=== PATIENT | female | born 1940 | race Caucasian/White ===

== ENCOUNTER → 2016-06-03 | Outpatient (CLI) | payer MEDICARE ==
[~2016-06-03] MED LIST: B12; CEFD300C3 PO; CETI10CA PO; CITA20TA7 PO; ERGO2000 PO; NAPR220C11 PO; OMEP-10 PO; VITA150T PO; VITAMINES
--- OUTSIDE RECORDS SUMMARY | 2016-06-03 07:55 | XMS REPORT | Continuity of Care Document ---
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 Medications Current Home Medications Medication Dose Units Route Directions Days/Qty Instructions Start Date Omeprazole 20 Mg 20 Mg Oral Daily 04/13/12 Cetirizine Hcl 10 Mg 10 Mg Oral 04/13/12 Naproxen Sodium 220 Mg 220 Mg Oral As Needed 04/13/12 Cefdinir (Omnicef) 300 Mg 300 Mg Oral Twice A Day 14 12/06/15 Past Home Medications Medication Directions Ordered Status Ergocalciferol (Vitamin D2) 2,000 Unit Tablet, 2000 Unit Oral 04/13/12 Discontinued [B12] , 04/13/12 Discontinued [Vitamines] , 04/13/12 Discontinued Social History Social History Problem Response Recorded Date/Time Alcohol Use Denies Use 12/06/2015 5:54am Recreational Drug Use No 12/06/2015 5:54am Recent Foreign Travel No 03/10/2016 2:28pm Recent Infectious Disease Exposure No 03/10/2016 2:28pm Sexually Transmitted Disease No 03/10/2016 2:30pm HIV/AIDS No 03/10/2016 2:30pm Smoking Status Never a Smoker 03/10/2016 2:30pm Do you dip or chew tobacco? No 12/06/2015 5:54am Recent Hopitalizations No 03/10/2016 2:30pm Sexually Transmitted Disease No 03/10/2016 2:30pm Query Response Start Date Stop Date Smoking Status Never a Smoker Hospital Discharge Instructions No hospital discharge instructions. Plan of Care Discharge Date 03/10/16 2:37pm Prescriptions See Medication Section Functional Status No functional status results. Allergies, Adverse Reactions, Alerts No known allergies. Immunizations No immunization records. Vital Signs Acute Vital Signs Vital Response Date/Time Height (Feet) 5 feet 03/10/2016 2:29pm Height (Inches) 2.00 inches 03/10/2016 2:29pm Height (Calculated Centimeters) 157.630915 cm 03/10/2016 2:29pm Weight (Pounds) 165 pounds 03/10/2016 2:29pm Weight (Ounces) 0.0 oz 03/10/2016 2:29pm Weight (Calculated Grams) 79600.74 gm 03/10/2016 2:29pm Weight (Calculated Kilograms) 74.979825 kilograms 03/10/2016 2:29pm Calculated BMI 30.2 03/10/2016 2:29pm Results No known relevant diagnostic tests, laboratory data and/or discharge summary. Procedures No known history of procedures. Encounters Encounter Location Arrival/Admit Date Discharge/Depart Date Attending Provider Departed Clinic [facility] 03/10/16 5:59am 03/10/16 2: 37pm DOV HUERTAS MD
--- NOTE | 2016-06-03 09:21 | Diagnostic Imaging Report ---
PROCEDURE: MR imaging cervical spine without contrast. TECHNIQUE: Multiplanar, multisequence MR imaging of the cervical spine was performed without contrast. INDICATION: Neck pain. No known injury. FINDINGS: There is straightening of the cervical spine. The vertebral body heights are preserved. Disc desiccation is seen at all levels. Disc heights demonstrate uyizxthp-gr-evhrjrbz disc height loss in the mid to lower cervical spine levels, worst at C6/7 and C7/T1. The alignment of the posterior spinal line and the facet joints appears satisfactory. There is no widening of the predental space. The foramen magnum and upper cervical canal are patent. There is no suspicious marrow signal abnormality. Reactive mild degenerative changes are seen, however, around the degenerative discs. The spinal cord has a normal caliber, contour, and signal. C2/3: No significant disc herniation, no spinal canal or foraminal stenosis. C3/4: There is a small disc spur complex with no significant spinal canal stenosis. Uncovertebral and facet joint hypertrophy results in bilateral foraminal stenosis, moderate on the right and moderate to severe on the left. C4/5: There is a prominent spur disc complex and mild posterior ligamentous hypertrophy with no significant spinal canal stenosis. The foramina demonstrate severe stenosis bilaterally. C5/6: There is spur disc complex and posterior ligamentous hypertrophy without significant spinal canal stenosis. Bilateral severe foraminal stenosis, however, is present. C6/7: There is spur disc complex without significant spinal canal stenosis. The foramina demonstrate bilateral moderate narrowing. C7/T1: There is a spur disc complex without significant spinal canal stenosis. There is bilateral foraminal stenosis of moderate degree. There is no cord compression at any level. IMPRESSION: Prominent degenerative changes. There is multilevel significant foraminal stenosis. No significant spinal canal stenosis or cord compression, however, seen at any level. Dictated by: Dictated on workstation # [id number]
== END ==
LOC: RAD 07:52
PROVIDERS: ATTEND Orthopaedic Surgery
DX: M54.12 Radiculopathy, cervical region (principal)
CPT/HCPCS: 72141

== ENCOUNTER → 2017-02-07 | Outpatient (CLI) | payer MEDICARE ==
--- NOTE | 2017-02-07 13:46 | Diagnostic Imaging Report ---
Multiplanar multisequence MRI of the thoracic spine performed without intravenous contrast. INDICATION: Left-sided mid back pain after a fall. Spondylosis. FINDINGS: There is satisfactory alignment of the thoracic spine. The vertebral body heights are preserved with no compression fracture seen. There is disc desiccation at multiple levels. There is prominent disc height loss at T8/T9 and T9/T10 levels. The bone marrow signal is slightly heterogeneous with no suspicious focal lesion seen. There is prominent edema at the endplates around T12/L1 disc which appears to be reactive to disc degenerative changes. The spinal cord has normal caliber, contour and signal. There is no syrinx or spinal cord edema or mass identified. There are mild disc protrusions seen at T8/T9, T9/T10, and diffuse disc bulge at T12/L1 levels with no significant spinal canal stenosis or cord compression at any level. There is facet arthropathy also involving the upper and lower thoracic spine levels. This results in moderate foraminal stenosis at C7/T1 and at T1/T2 bilaterally. Also in the lower thoracic spine at T8/T9 level, there is mild foraminal stenosis on the left side only. At T9/T10, there is bilateral foraminal stenosis, moderate to severe on the left and moderate on the right side. No significant foraminal stenosis is seen at other levels. IMPRESSION: Degenerative changes in the thoracic spine are seen with multilevel disc herniations without spinal canal stenosis or cord compression at any level. In the upper and lower thoracic levels, there is facet arthropathy, however, with particularly prominent neural foraminal stenosis at T9/T10 level, worse on the left side. Dictated by: Dictated on workstation # [id number]
== END ==
LOC: RAD 09:14
PROVIDERS: ATTEND Orthopaedic Surgery
DX: M47.814 Spondylosis without myelopathy or radiculopathy, thoracic region (principal); M51.24 Other intervertebral disc displacement, thoracic region; M48.04 Spinal stenosis, thoracic region
CPT/HCPCS: 72146

== ENCOUNTER → 2017-12-06 | Outpatient (CLI) | payer MEDICARE ==
[~2017-12-06] MED LIST changes: -CITA20TA7 PO; +CITA20TA9 PO; +GADOBUTROL 7.5 MMOL/7.5 ML (GADAVIST) VIAL IV ONE
--- NOTE | 2017-12-06 12:22 | Diagnostic Imaging Report ---
PROCEDURE: MR imaging of the brain with and without contrast. TECHNIQUE: Multiplanar, multisequence MR imaging of the brain was performed with and without contrast. INDICATION: Left upper extremity tremors. COMPARISON: None. FINDINGS: Mild generalized cerebral and cerebellar parenchymal volume loss is age appropriate. No abnormal intracranial signal or enhancement. No restricted water diffusion or hemosiderin deposition. Normal morphology including the major midline structures, sella, posterior fossa, and cerebellopontine angle. Postoperative changes in the globes. No hydrocephalus or extra-axial fluid collections. Normal intracranial flow voids. The paranasal sinuses and mastoids are clear. Normal bone marrow signal. IMPRESSION: Age-appropriate MRI of the brain. No acute intracranial MRI findings. Dictated by: Dictated on workstation # [id number]
--- NOTE | 2017-12-06 12:29 | Diagnostic Imaging Report ---
PROCEDURE: MR imaging cervical spine with and without contrast. TECHNIQUE: Multiplanar and multisequence MRI of the cervical spine was performed with and without contrast. INDICATION: Left upper extremity tremor. Cervical stenosis. COMPARISON: MRI cervical spine without contrast 06/03/2016. FINDINGS: Minimal anterolisthesis of C3 on C4 stable. Alignment is otherwise unremarkable. Moderate diffuse degenerative endplate changes. Bone marrow signal is otherwise negative. No abnormal signal or enhancement in the cervical spinal cord. The visualized paravertebral soft tissues are unremarkable. The cervical carotid and vertebral artery flow voids are preserved. C2-C3: No substantial spinal canal or neural foraminal narrowing. C3-C4: Posterior disc osteophyte complex results in mild spinal canal narrowing. Uncovertebral and facet arthropathy result in moderate right neural foraminal narrowing. C4-C5: No substantial spinal canal narrowing. Uncovertebral and facet arthropathy result in moderate bilateral neural foraminal narrowing. C5-C6: Posterior disc osteophyte complex results in mild spinal canal narrowing. Uncovertebral and facet arthropathy result in moderate bilateral neural foraminal narrowing. C6-C7: Posterior disc osteophyte complex results in moderate spinal canal narrowing. This has mildly progressed since the prior exam. Uncovertebral and facet arthropathy result in moderate to advanced bilateral neural foraminal narrowing. C7-T1: Posterior disc osteophyte complex results in mild spinal canal narrowing. There is mild bilateral neural foraminal narrowing. IMPRESSION: 1. Overall stable spondylotic changes result in multilevel mild spinal canal narrowing. Allowing for differences in technique, the moderate spinal canal narrowing at C6-C7 is likely stable. No abnormal signal or enhancement in the cervical spinal cord. 2. Multilevel moderate to advanced neural foraminal narrowing detailed above level by level similar to the prior exam. 3. No acute osseous findings. Dictated by: Dictated on workstation # [id number]
== END ==
LOC: RAD 10:20
PROVIDERS: ATTEND Family Medicine
DX: M48.03 Spinal stenosis, cervicothoracic region (principal); M99.71 Connective tissue and disc stenosis of intervertebral foramina of cervical region; M46.82 Other specified inflammatory spondylopathies, cervical region; G20 Parkinson's disease
CPT/HCPCS: 70553; 72156

== ENCOUNTER → 2018-11-27 | Outpatient (CLI) | payer MEDICARE ==
[~2018-11-27] MED LIST changes: -GADOBUTROL 7.5 MMOL/7.5 ML (GADAVIST) VIAL IV ONE
[2018-11-27 17:00] LABS: BASOPHILS % (AUTO) 0 % (0-10); EOSINOPHILS # (AUTO) 0.2 10^3/uL (0.0-0.3); EOSINOPHILS % (AUTO) 4 % (0-10); HEMATOCRIT 41 % (35-52); HEMOGLOBIN 13.7 G/DL (11.5-16.0); LYMPHOCYTES # (AUTO) 1.6 X 10^3 (1.0-4.0); LYMPHOCYTES % (AUTO) 26 % (12-44); MEAN CORPUSCULAR HEMOGLOBIN 29 PG (25-34); MEAN CORPUSCULAR HGB CONC 33 G/DL (32-36); MEAN CORPUSCULAR VOLUME 86 FL (80-99); MEAN PLATELET VOLUME 9.8 FL (7.4-10.4); MONOCYTES # (AUTO) 0.6 X 10^3 (0.0-1.0); MONOCYTES % (AUTO) 10 % (0-12); NEUTROPHILS # (AUTO) 3.6 X 10^3 (1.8-7.8); NEUTROPHILS % (AUTO) 60 % (42-75); PLATELET COUNT 245 10^3/uL (130-400); RED CELL DISTRIBUTION WIDTH 13.5 % (10.0-14.5); WHITE BLOOD COUNT 5.9 10^3/uL (4.3-11.0)
[2018-11-27 17:17] LABS: ALBUMIN 4.4 GM/DL (3.2-4.5); BILIRUBIN,TOTAL 0.4 MG/DL (0.1-1.0); CREATININE SERUM 1.09 MG/DL (0.60-1.30); POTASSIUM 4.3 MMOL/L (3.6-5.0); TOTAL PROTEIN 6.7 GM/DL (6.4-8.2)
== END ==
LOC: RAD 16:36
PROVIDERS: ATTEND Nurse Practitioner Family
DX: R53.83 Other fatigue (principal); R53.81 Other malaise; R55 Syncope and collapse
CPT/HCPCS: 36415; 80053; 82306; 85025

== ENCOUNTER → 2020-01-16 | Outpatient (CLI) | payer MEDICARE ==
--- NOTE | 2020-01-17 14:22 | Diagnostic Imaging Report ---
PROCEDURE: MR imaging of the brain without contrast. TECHNIQUE: Multiplanar, multisequence MR imaging of the brain was performed without contrast. INDICATION: Balance issues. Tremor. History of Parkinson's. COMPARISON: MRI brain on 12/06/2017. FINDINGS: No acute ischemia, mass, or hemorrhage. The ventricles and cortical sulci are mildly prominent. The basilar cisterns are symmetric and unremarkable. The sellar and suprasellar regions have a normal appearance. The major intracranial flow voids are intact. The brainstem and posterior fossa are unremarkable. Mild mucosal thickening is seen in the ethmoid sinuses. The mastoid air cells demonstrate normal signal characteristics. Bilateral lens implants are noted. The globes and orbits are symmetric and unremarkable. The scalp and calvarium have a normal appearance. IMPRESSION: 1. No acute ischemia, mass, or hemorrhage. 2. Mild parenchymal volume loss. Dictated by: Dictated on workstation # [id number]
== END ==
LOC: RAD 07:30
PROVIDERS: ATTEND Psychiatry & Neurology Neurology
DX: G93.89 Other specified disorders of brain (principal); H02.401 Unspecified ptosis of right eyelid; Z86.69 Personal history of other diseases of the nervous system and sense organs
CPT/HCPCS: 70551

== ENCOUNTER 2020-08-27 20:35 | Emergency (ER) | payer MEDICARE ==
[~2020-08-27] VITALS: Ht 157 cm; Wt 77.0 kg
--- NOTE | 2020-08-27 21:11 | ED Chest Pain ---
General Stated Complaint: ACID REFLEX / STERNUM / UPPER RIB PRESSURE/PAIN Source: patient Exam Limitations: no limitations History of Present Illness Date Seen by Provider: Aug 27, 2020 Time Seen by Provider: 20:55 Initial Comments Patient is an 79-year-old female who presents to the emergency department today with a chief complaint of epigastric/low sternal chest discomfort that she describes as "bad heartburn". Patient states that it started around 4:00 this afternoon. She felt a little clammy and chilled when it started. Patient had had [employer] for lunch this afternoon and about 3 hours later went to physical therapy and then had the onset of the discomfort. She denies nausea. She denies shortness of breath with the chest discomfort. She has never had heartburn this bad before she says. Patient states that she had a burning that radiated up into the anterior portion of her neck. This had resolved by the time she saw me but she still has some tightness around her epigastrium and mild burning in her mid chest. She denies any recent fevers, chills, shortness of breath, cough or congestion. She denies nausea, vomiting, diarrhea. She has had no illnesses to speak of. No urinary complaints. She does take pantoprazole every morning. All other review of systems reviewed and negative except as stated above. Timing/Duration: 4-6 hours Severity/Quality: moderate, burning Location: central Radiation: neck (anterior) Activities at Onset: activity Modifying Factors: improves with antacids ASA po SLP TEACHER: No NTG SL SLP TEACHER: No Associated Symptoms: denies symptoms Allergies and Home Medications Allergies Coded Allergies: No Known Drug Allergies (Unverified , 03/10/16) Home Medications Citalopram Hydrobromide 20 Mg Tablet, 20 MG PO DAILY, (Reported) Omeprazole 20 Mg Capsule.dr, 20 MG PO DAILY, (Reported) Vitamin B Complex & Vit C No.4 150 Mg Tablet, 150 MG PO DAILY, (Reported) Patient Home Medication List Home Medication List Reviewed: Yes Review of Systems Review of Systems Constitutional: see HPI EENTM: No Symptoms Reported Respiratory: SOA With Exertion (a little short of breath walking to her room here in the ER) Cardiovascular: No Symptoms Reported Gastrointestinal: Blood Streaked Stools, Other (epigastric discomfort like a ba nd around her upper abdomen) Genitourinary: No Symptoms Reported Musculoskeletal: no symptoms reported Skin: no symptoms reported Psychiatric/Neurological: No Symptoms Reported All Other Systems Reviewed Negative Unless Noted: Yes Past Yqnkrmv-Gopszm-Nstnqg Hx Patient Social History Recent Hopitalizations: No Immunizations Up To Date Date of Pneumonia Vaccine: May 13, 2010 Date of Influenza Vaccine: Feb 25, 2016 Seasonal Allergies Seasonal Allergies: Yes Past Medical History Section, Joint Replacement Reproductive Disorders: No Female Reproductive Disorders: Denies Sexually Transmitted Disease: No HIV/AIDS: No UTI-Chronic Gastroesophageal Reflux Arthritis Loss of Vision: Bilateral Hearing Impairment: Denies Adverse Reaction/Blood Tranf: No (HAS HAD BLOOD WITH NO REACTION) Physical Exam Vital Signs Capillary Refill : Height, Weight, BMI Height: 5'2.00" Weight: 165lbs. 0.0oz. 74.376161yq; 30.2 BMI Method:Stated General Appearance: No Apparent Distress, WD/WN Neck: Normal Inspection Respiratory: Lungs Clear, Normal Breath Sounds, No Accessory Muscle Use, No Respiratory Distress Cardiovascular: Regular Rate, Rhythm Gastrointestinal: Normal Bowel Sounds, Non Tender, Soft Extremity: Normal Capillary Refill, Normal Inspection, Non Tender, No Pedal Edema Neurologic/Psychiatric: Alert, Oriented x3, No Motor/Sensory Deficits, Normal Mood/Affect Progress/Results/Core Measures Results/Orders Lab Results Laboratory Tests Test 08/27/20 21:08 Range/Units White Blood Count 7.7 4.3-11.0 10^3/uL Red Blood Count 4.72 3.80-5.11 10^6/uL Hemoglobin 13.5 11.5-16.0 g/dL Hematocrit 42 35-52 % Mean Corpuscular Volume 88 80-99 fL Mean Corpuscular Hemoglobin 29 25-34 pg Mean Corpuscular Hemoglobin Concent 33 32-36 g/dL Red Cell Distribution Width 13.0 10.0-14.5 % Platelet Count 268 130-400 10^3/uL Mean Platelet Volume 9.5 9.0-12.2 fL Immature Granulocyte % (Auto) 1 % Neutrophils (%) (Auto) 59 42-75 % Lymphocytes (%) (Auto) 27 12-44 % Monocytes (%) (Auto) 10 0-12 % Eosinophils (%) (Auto) 4 0-10 % Basophils (%) (Auto) 1 0-10 % Neutrophils # (Auto) 4.5 1.8-7.8 10^3/uL Lymphocytes # (Auto) 2.0 1.0-4.0 10^3/uL Monocytes # (Auto) 0.7 0.0-1.0 10^3/uL Eosinophils # (Auto) 0.3 0.0-0.3 10^3/uL Basophils # (Auto) 0.0 0.0-0.1 10^3/uL Immature Granulocyte # (Auto) 0.1 0.0-0.1 10^3/uL Sodium Level 140 135-145 MMOL/L Potassium Level 4.1 3.6-5.0 MMOL/L Chloride Level 105 98-107 MMOL/L Carbon Dioxide Level 23 21-32 MMOL/L Anion Gap 12 5-14 MMOL/L Blood Urea Nitrogen 19 H 7-18 MG/DL Creatinine 1.09 0.60-1.30 MG/DL Estimat Glomerular Filtration Rate 48 BUN/Creatinine Ratio 17 Glucose Level 101 70-105 MG/DL Calcium Level 9.9 8.5-10.1 MG/DL Corrected Calcium 9.7 8.5-10.1 MG/DL Total Bilirubin 0.4 0.1-1.0 MG/DL Aspartate Amino Transf (AST/SGOT) 18 5-34 U/L Alanine Aminotransferase (ALT/SGPT) 14 0-55 U/L Alkaline Phosphatase 66 40-136 U/L Total Creatine Kinase 46 29-168 U/L Creatine Kinase MB 1.1 <6.6 NG/ML Troponin I < 0.028 <0.028 NG/ML Total Protein 7.0 6.4-8.2 GM/DL Albumin 4.3 3.2-4.5 GM/DL Lipase 58 8-78 U/L My Orders Orders - KATHERINE JADE MD Ed Iv/Invasive Line Start (08/27/20 21:04) Cbc With Automated Diff (08/27/20 21:04) Comprehensive Metabolic Panel (08/27/20 21:04) Lipase (08/27/20 21:04) Creatine Kinase (08/27/20 21:04) Creatine Kinase Mb (08/27/20 21:04) Troponin I (08/27/20 21:04) Ekg Tracing (08/27/20 21:04) Chest 1 View, Ap/Pa Only (08/27/20 21:04) Sucralfate Tablet (Carafate Tablet) (08/27/20 21:15) Antacid Suspension (Mylanta Suspension (08/27/20 21:15) Lidocaine 2% Viscous 15 Ml (Xylocaine Vi (08/27/20 21:15) Medications Given in ED Current Medications Medications Dose Ordered Sig/Buddy Route Start Time Stop Time Status Last Admin Dose Admin Al Hydrox/Mg Hydrox/Simethicone 30 ml ONCE ONCE PO 08/27/20 21:15 08/27/20 21:16 DC 08/27/20 21:23 30 ML Lidocaine HCl 5 ml ONCE ONCE PO 08/27/20 21:15 08/27/20 21:16 DC 08/27/20 21:23 5 ML Sucralfate 1 gm ONCE ONCE PO 08/27/20 21:15 08/27/20 21:16 DC 08/27/20 21:22 1 GM Progress Progress Note : Time: 22:00 Progress Note 79-year-old female presents to the emergency department with a chief complaint of epigastric burning and tightness radiating up into her chest and neck. Onset around 4:00 this afternoon. Evaluation today includes a physical exam, CBC, Chem 12 shows no evidence of significant electrolyte, renal, hepatic, or other metabolic derangement., Lipase, cardiac enzyme profile, EKG and chest x-ray. Patient was treated in the emergency department with a gram of Carafate, Maalox and lidocaine slurry. She has achieved complete relief of her discomfort. Car diac enzyme profile was obtained a little over 4-1/2 hours after the onset of her symptoms. Her enzymes are completely negative. Her EKG shows a normal sinus rhythm without ectopy or ST segment elevation or depression at the time of the patient having discomfort. Chest x-ray is reviewed and is also within normal limits without evidence of cardiomegaly, effusion, infiltrate or pu lmonary edema. Patient is comfortable. Her vital signs are stable. She has no clinical or objective findings to warrant further studies from the emergency department at this time. She states that she has a follow-up appointment with her primary care physician, Dr. Mcdonough sometime this month. I have advised the patient that I will send a copy of this report to Dr. Mcdonough's office. The patient is given good return precautions including if her symptoms recur or worsen or are present with other symptoms such as shortness of breath, nausea or sweating that she needs to come back to the emergency department for reevaluation. She verbalizes understanding. All questions are sought and answered. Patient is stable for discharge. Initial ECG Impression Date: Aug 27, 2020 Initial ECG Impression Time: 20:57 Initial ECG Rate: 82 Initial ECG Rhythm: Normal Sinus Initial ECG Intervals: Normal Initial ECG Impression: Normal, Nonspecific Changes Comment nonspecific ST T wave changes in inferior leads Diagnostic Imaging Diagonstic Imaging: Xray Plain Films/CT/US/NM/MRI: chest Comments [facility] [place], [place] NAME: KIERSTEN SHARIF [facility] REC#: [id number] PT STATUS: REG ER : 1940 PHYSICIAN: KATHERINE JADE MD ADMIT DATE: 08/27/20/ER Draft Date of Exam:08/27/20 CHEST 1 VIEW, AP/PA ONLY EXAMINATION: Chest 1 view HISTORY: Anterior chest wall pain COMPARISON: Chest radiograph 04/05/2007 FINDINGS: Heart size and pulmonary vasculature are normal. The lungs are clear without consolidation, pleural effusion, or pneumothorax. Degenerative changes of the thoracic spine. Osseous structures are otherwise intact. IMPRESSION: 1. No acute radiographic abnormality in the chest. Dictated on workstation # [id number] Dict: 08/27/202120 Trans: 08/27/202122 [facility] [id number] Interpreted by: TOMAS JUDD DO Electronically signed by: Departure Impression Primary Impression: GERD (gastroesophageal reflux disease) Qualified Codes: K21.9 - Gastro-esophageal reflux disease without esophagi tis Disposition: 01 HOME, SELF-CARE Condition: Stable Departure-Patient Inst. Decision time for Depature: 22:02 Referrals: TATIANNA MCDONOUGH MD (PCP/Family) Primary Care Physician Patient Instructions: Acid Reflux and Gastroesophageal Reflux Disease in Adults Add. Discharge Instructions: Please continue to take your home daily medications as previously prescribed. Take your pantoprazole every morning as instructed. Come back to the emergency room if you have a recurrence of symptoms especially associated with shortness of breath, nausea, sweating, dizziness or any other emergent concerns. Please keep your follow-up appointment with Dr. Mcdonough's office this month. Copy Copies To 1: TATIANNA MCDONOUGH MD, KATHRYN M MD Aug 27, 2020 21:11
[2020-08-27] MEDS ORDERED: ANTACID SUSP 30 ML UDC (MYLANTA) PO ONE (21:15)
[2020-08-27] MEDS ORDERED: SUCRALFATE 1 GM (CARAFATE) TAB PO ONE (21:15)
[2020-08-27] MEDS ORDERED: LIDOCAINE 2% VISCOUS 15 ML UDC PO ONE (21:15)
[2020-08-27 21:17] LABS: BASOPHILS % (AUTO) 1 % (0-10); EOSINOPHILS # (AUTO) 0.3 10^3/uL (0.0-0.3); EOSINOPHILS % (AUTO) 4 % (0-10); HEMATOCRIT 42 % (35-52); HEMOGLOBIN 13.5 g/dL (11.5-16.0); LYMPHOCYTES % (AUTO) 27 % (12-44); MEAN CORPUSCULAR HEMOGLOBIN 29 pg (25-34); MEAN CORPUSCULAR HGB CONC 33 g/dL (32-36); MEAN CORPUSCULAR VOLUME 88 fL (80-99); MEAN PLATELET VOLUME 9.5 fL (9.0-12.2); MONOCYTES # (AUTO) 0.7 10^3/uL (0.0-1.0); MONOCYTES % (AUTO) 10 % (0-12); NEUTROPHILS # (AUTO) 4.5 10^3/uL (1.8-7.8); NEUTROPHILS % (AUTO) 59 % (42-75); PLATELET COUNT 268 10^3/uL (130-400); WHITE BLOOD COUNT 7.7 10^3/uL (4.3-11.0)
--- NOTE | 2020-08-27 21:24 | Diagnostic Imaging Report ---
EXAMINATION: Chest 1 view HISTORY: Anterior chest wall pain COMPARISON: Chest radiograph 04/05/2007 FINDINGS: Heart size and pulmonary vasculature are normal. The lungs are clear without consolidation, pleural effusion, or pneumothorax. Degenerative changes of the thoracic spine. Osseous structures are otherwise intact. IMPRESSION: 1. No acute radiographic abnormality in the chest. Dictated by: Dictated on workstation # [id number]
[2020-08-27 21:42] LABS: ALANINE AMINOTRANSFERASE 14 U/L (0-55); ALBUMIN 4.3 GM/DL (3.2-4.5); ALKALINE PHOSPHATASE 66 U/L (40-136); BILIRUBIN,TOTAL 0.4 MG/DL (0.1-1.0); BUN/CREATININE RATIO 17; CALCIUM 9.9 MG/DL (8.5-10.1); CARBON DIOXIDE 23 MMOL/L (21-32); CHLORIDE 105 MMOL/L (98-107); CREATINE KINASE 46 U/L (29-168); CREATININE SERUM 1.09 MG/DL (0.60-1.30); GFR ESTIMATED 48; GLUCOSE 101 MG/DL (70-105); LIPASE 58 U/L (8-78); POTASSIUM 4.1 MMOL/L (3.6-5.0); SODIUM 140 MMOL/L (135-145)
[2020-08-27 21:51] LABS: CREATINE KINASE MB 1.1 NG/ML (<6.6)
[2020-08-27 22:10] VITALS: BP 115/81
== END 2020-08-27 22:10 | disposition home or self-care (01) ==
LOC: EDUNIT# 20:35 → ER 20:37
DX: K21.9 Gastro-esophageal reflux disease without esophagitis (principal)
CPT/HCPCS: 36415; 71045; 80053; 82550; 82553; 83690; 84484; 85025; 93005

== ENCOUNTER 2021-03-27 17:15 | Emergency (ER) | payer MEDICARE ==
[~2021-03-27] VITALS: Ht 157.4 cm; Wt 66.4 kg
--- NOTE | 2021-03-27 18:39 | ED Abdominal Pain ---
General Chief Complaint: Abdominal/GI Problems Stated Complaint: L SIDE ABD PAIN Source of Information: Patient (LIMITED HISTORIAN) History of Present Illness Date Seen by Provider: Mar 27, 2021 Time Seen by Provider: 18:20 Initial Comments PT ARRIVES VIA POV FROM HOME C/O ABDOMINAL PAIN X 1 HOUR PAIN IS UB EPIGASTRIC AREA AND LEFT UPPER ABDOMEN NOTHING WORSENS OR IMPROVES PAIN HAS NOT TAKEN ANYTHING FOR PAIN NO NAUSEA/VOMITING OR DIARRHEA--HAS BEEN EATING AND DRINKING FINE ALL DAY NO FEVER NO URINARY SYMPTOMS NO CHEST PAIN NO SHORTNESS OF BREATH NO BACK PAIN PT HAS BEEN ON 3 ROUNDS OF ANTIBIOTICS OVER THE LAST SEVERAL WEEKS--FIRST ROUND WAS FOR SINUS INFECTION, THEN WAS ON DIFFERENT ANTIBIOTIC FOR DENTAL CLEANING, AND LAST ROUND WAS FOR UNKNOWN REASON--LAST DOSE WAS YESTERDAY AND TOOK IT FOR A WEEK. DOES NOT KNOW NAMES OF ANY OF THE ANTIBIOTICS PER MED RECONCILIATION, THE ONLY ANTIBIOTICS LISTED WERE FOR FLAGYL/METRONIDAZOLE X 7 DAYS--PRESCRIBED 03/18/21, AND FOR AMOXICILLIN ON 02/25/21 FOR 2 DAYS STATES SHE HAS BEEN ON A PROBIOTIC WELL NO PRIOR ABDOMINAL SURGERIES, HAS HISTORY OF GERD PT HAS HAD MODERNA COVID-19 VACCINE X 3-- FIRST 2 DOSES IN JUNE, BOOSTER DOES 03/12/21 PCP: DR. RAZA Allergies and Home Medications Allergies Coded Allergies: No Known Drug Allergies (Unverified , 03/10/16) Patient Home Medication List Home Medication List Reviewed: Yes Cetirizine Hcl (Zyrtec) 10 Mg Capsule, 10 MG PO, (Reported) Entered as Reported by: RENNY BROCK on 04/13/12 0950 Citalopram Hydrobromide (Citalopram HBr) 20 Mg Tablet, 20 MG PO DAILY, (Reported) Entered as Reported by: FAYE MARINO on 03/12/16 0918 Hydrocodone/Acetaminophen (Hydrocodone-Acetamin 5-325 mg) 1 Each Tablet, 0.5-1 EACH PO Q4-6 HOURS PRN for PAIN Prescribed by: LAY JAVIER on 03/27/212018 Hyoscyamine Sulfate (Levsin-Sl) 0.125 Mg Tab.subl, 0.25 MG SL Q4H Prescribed by: LAY JAVIER on 03/27/212018 Omeprazole (Prilosec 20 Mg) 20 Mg Capsule., 20 MG PO DAILY, (Reported) Entered as Reported by: RENNY BROCK on 04/13/12 0946 Ondansetron (Ondansetron Odt) 4 Mg Tab.rapdis, 4 MG PO Q4H Prescribed by: LAY JAVIER on 03/27/212019 Vitamin B Complex & Vit C No.4 (Super B Complex) 150 Mg Tablet, 150 MG PO DAILY, (Reported) Entered as Reported by: FAYE MARINO on 03/12/16 0918 Review of Systems Review of Systems Constitutional: no symptoms reported; No fever EENTM: No Symptoms Reported Respiratory: No Symptoms Reported; Denies Cough, Denies Shortness of Air Cardiovascular: No Symptoms Reported; Denies Chest Pain Gastrointestinal: See HPI, Abdominal Pain; Denies Constipated, Denies Diarrhea, Denies Nausea, Denies Poor Appetite, Denies Poor Fluid Intake, Denies Vomiting Genitourinary: No Symptoms Reported Musculoskeletal: no symptoms reported Skin: no symptoms reported Psychiatric/Neurological: No Symptoms Reported Endocrine: No Symptoms Reported Hematologic/Lymphatic: No Symptoms Reported Past Cyvdfub-Ywpxel-Zwuhyj Hx Patient Social History Tobacco Use?: No Substance use?: No Alcohol Use?: No Immunizations Up To Date First/Initial COVID19 Vaccinat: 06/2020 Second COVID19 Vaccination Alexis: 06/2020 COVID19 Booster (Date): 03/12/21 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: KELLY Seasonal Allergies Seasonal Allergies: Yes Past Medical History Surgery/Hospitalization HX: 02/2016--COLONOSCOPY/POLYPECTOMY 03/2014--EGD/GASTRIC POLYPS X 2 BILATERAL CATARACT SURGERY LEFT KNEE REPLACEMENT Surgeries: Yes (CATARACTS BILAT, LEFT KNEE REPLACEMENT) Section, Eye Surgery, Joint Replacement, Orthopedic Respiratory: No Cardiac: Yes Hypertension Neurological: Yes Parkinson's Disease Reproductive Disorders: No 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 Sexually Transmitted Disease: No HIV/AIDS: No Genitourinary: Yes UTI-Chronic Gastrointestinal: Yes Gastroesophageal Reflux Musculoskeletal: Yes (LEFT KNEE REPLACEMENT) Arthritis Endocrine: No HEENT: Yes Cataract Loss of Vision: Bilateral Hearing Impairment: Denies Cancer: No Psychosocial: No Integumentary: No Blood Disorders: No Adverse Reaction/Blood Tranf: No (HAS HAD BLOOD WITH NO REACTION) Physical Exam Vital Signs Vital Signs - First Documented 03/27/21 18:18 Temp 36.7 Pulse 92 Resp 24 B/P (MAP) 186/90 (122) Pulse Ox 97 O2 Delivery Room Air Capillary Refill : Height/Weight/BMI Height: 5'2.00" Weight: 165lbs. 0.0oz. 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, no motor/sensory deficits, alert, normal mood/affect, oriented x 3, other (RESTING TREMOR OF HANDS--LEFT > RIGHT) Skin: normal color, warm/dry; No rash Progress/Results/Core Measures Results/Orders Lab Results Laboratory Tests Test 03/27/21 18:38 Range/Units White Blood Count 7.9 4.3-11.0 10^3/uL Red Blood Count 4.79 3.80-5.11 10^6/uL Hemoglobin 13.6 11.5-16.0 g/dL Hematocrit 42 35-52 % Mean Corpuscular Volume 88 80-99 fL Mean Corpuscular Hemoglobin 28 25-34 pg Mean Corpuscular Hemoglobin Concent 33 32-36 g/dL Red Cell Distribution Width 13.2 10.0-14.5 % Platelet Count 260 130-400 10^3/uL Mean Platelet Volume 10.2 9.0-12.2 fL Immature Granulocyte % (Auto) 0 % Neutrophils (%) (Auto) 67 42-75 % Lymphocytes (%) (Auto) 19 12-44 % Monocytes (%) (Auto) 10 0-12 % Eosinophils (%) (Auto) 3 0-10 % Basophils (%) (Auto) 1 0-10 % Neutrophils # (Auto) 5.3 1.8-7.8 10^3/uL Lymphocytes # (Auto) 1.5 1.0-4.0 10^3/uL Monocytes # (Auto) 0.8 0.0-1.0 10^3/uL Eosinophils # (Auto) 0.3 0.0-0.3 10^3/uL Basophils # (Auto) 0.1 0.0-0.1 10^3/uL Immature Granulocyte # (Auto) 0.0 0.0-0.1 10^3/uL Prothrombin Time 13.3 12.2-14.7 SEC INR Comment 1.0 0.8-1.4 Activated Partial Thromboplast Time 29 24-35 SEC Urine Color YELLOW Urine Clarity CLEAR Urine pH 6.0 5-9 Urine Specific Joes 1.020 1.016-1.022 Urine Protein NEGATIVE NEGATIVE Urine Glucose (UA) NEGATIVE NEGATIVE Urine Ketones NEGATIVE NEGATIVE Urine Nitrite NEGATIVE NEGATIVE Urine Bilirubin NEGATIVE NEGATIVE Urine Urobilinogen 0.2 < = 1.0 MG/DL Urine Leukocyte Esterase NEGATIVE NEGATIVE Urine RBC (Auto) NEGATIVE NEGATIVE Urine RBC NONE /HPF Urine WBC NONE /HPF Urine Squamous Epithelial Cells RARE /HPF Urine Crystals NONE /LPF Urine Bacteria NEGATIVE /HPF Urine Casts NONE /LPF Urine Mucus NEGATIVE /LPF Urine Culture Indicated NO Sodium Level 139 135-145 MMOL/L Potassium Level 4.2 3.6-5.0 MMOL/L Chloride Level 104 98-107 MMOL/L Carbon Dioxide Level 23 21-32 MMOL/L Anion Gap 12 5-14 MMOL/L Blood Urea Nitrogen 13 7-18 MG/DL Creatinine 1.21 0.60-1.30 MG/DL Estimat Glomerular Filtration Rate 43 BUN/Creatinine Ratio 11 Glucose Level 100 70-105 MG/DL Calcium Level 9.8 8.5-10.1 MG/DL Corrected Calcium 9.6 8.5-10.1 MG/DL Magnesium Level 1.9 1.6-2.4 MG/DL Total Bilirubin 0.4 0.1-1.0 MG/DL Aspartate Amino Transf (AST/SGOT) 27 5-34 U/L Alanine Aminotransferase (ALT/SGPT) 24 0-55 U/L Alkaline Phosphatase 59 40-136 U/L Total Creatine Kinase 64 29-168 U/L Creatine Kinase MB 1.2 <6.6 NG/ML Myoglobin 56.8 10.0-92.0 NG/ML Troponin I < 0.028 <0.028 NG/ML B-Type Natriuretic Peptide 37.6 <100.0 PG/ML Total Protein 7.0 6.4-8.2 GM/DL Albumin 4.3 3.2-4.5 GM/DL Amylase Level 89 25-125 U/L Lipase 55 8-78 U/L My Orders Orders - LAY JAVIER DO Ed Iv/Invasive Line Start (03/27/21 18:29) Ekg Tracing (03/27/21 18:29) Monitor-Rhythm Ecg Trace Only (03/27/21 18:29) Straight Cath For Spec.-Adult (03/27/21 18:29) Chest 1 View, Ap/Pa Only (03/27/21 18:29) Amylase (03/27/21 18:29) BNP (03/27/21 18:29) Cbc With Automated Diff (03/27/21 18:29) Comprehensive Metabolic Panel (03/27/21 18:29) Creatine Kinase (03/27/21 18:29) Creatine Kinase Mb (03/27/21 18:29) Lipase (03/27/21 18:29) Magnesium (03/27/21 18:29) Protime With Inr (03/27/21 18:29) Partial Thromboplastin Time (03/27/21 18:29) Myoglobin Serum (03/27/21 18:29) Troponin I (03/27/21 18:29) Ct Abdomen/Pelvis W (03/27/21 19:20) Iohexol Injection (Omnipaque 350 Mg/Ml 1 (03/27/21 19:45) Received Contrast (Hold Metformin- Contr (03/27/21 19:45) Ns (Ivpb) (Sodium Chloride 0.9% Ivpb Bag (03/27/21 19:45) Ed Iv/Invasive Line Start (03/27/21 19:35) Lactated Ringers (Lr 1000 Ml Iv Solution (03/27/21 19:45) Rx-Hydrocodone/Apap 5-325 Mg (Rx-Vicodin (03/27/21 20:30) Rx-Hyoscyamine Tab (Rx-Levsin Sl) (03/27/21 20:20) Rx-Ondansetron Po (Rx-Zofran Po) (03/27/21 20:20) Medications Given in ED Current Medications Medications Dose Ordered Sig/Buddy Route Start Time Stop Time Status Last Admin Dose Admin Acetaminophen/ Hydrocodone Bitart 1 ea Q4H PRN PO 03/27/21 20:30 03/27/21 20:38 DC 03/27/21 20:25 1 EA Iohexol 100 ml ONCE ONCE IV 03/27/21 19:45 03/27/21 19:46 DC 03/27/21 19:38 92 ML Lactated Ringer's 1,000 ml @ 0 mls/hr Q0M ONCE IV 03/27/21 19:45 03/27/21 19:46 DC 03/27/21 19:54 1,000 MLS/HR Sodium Chloride 100 ml ONCE ONCE IV 03/27/21 19:45 03/27/21 19:46 DC 03/27/21 19:38 80 ML Vital Signs/I&O 03/27/21 03/27/21 18:18 20:30 Temp 36.7 36.3 Pulse 92 90 Resp 24 18 B/P (MAP) 186/90 (122) 177/92 Pulse Ox 97 99 O2 Delivery Room Air Room Air Progress Progress Note : Progress Note BP DOWN AND PAIN RESOLVED SHORTLY AFTER ARRIVAL, WITHOUT TREATMENT WILL SCHEDULE FOR OUTPATIENT ULTRASOUND OF ABDOMEN DISCUSSED STRICT RETURN PRECAUTIONS Initial ECG Impression Date: Mar 27, 2021 Initial ECG Impression Time: 18:43 Initial ECG Rate: 84 Initial ECG Rhythm: Normal Sinus Initial ECG Impression: Normal Diagnostic Imaging Comments CT ABDOMEN/PELVIS--PER RADIOLOGIST REPORT AT 2005 FINDINGS: The lung bases appear clear. There is diffuse fatty infiltration throughout the liver with multiple small hypodensities noted. Larger hypodensities in the inferior aspect of the liver simple in appearance. Gallbladder unremarkable. There are small hypodensities in the spleen too small for characterization. There are multiple simple appearing cysts within the kidneys. The adrenal glands unremarkable. Pancreas unremarkable. There is no ascites or free air. No inflammatory changes seen about the loops of bowel. There is diffuse degenerative disease within the osseous structures. No acute osseous abnormality. IMPRESSION: 1. Incidental findings with no acute process appreciated. CXR--PER RADIOLOGIST REPORT AT 2006 FINDINGS: There is cardiomegaly. Pulmonary vasculature unremarkable. Lungs clear. No effusions. No pneumothorax. IMPRESSION: 1. No acute cardiopulmonary process. Reviewed: Reviewed by Me Departure Impression Primary Impression: Epigastric abdominal pain Additional Impressions: HTN (hypertension) Hx of gastroesophageal reflux (GERD) Disposition: 01 HOME, SELF-CARE Condition: Improved Departure-Patient Inst. Decision time for Depature: 20:10 Referrals: TATIANNA RAZA MD (PCP/Family) Primary Care Physician Patient Instructions: Abdominal Pain, Adult ED Add. Discharge Instructions: CONTINUE YOUR CURRENT MEDICATIONS PRESCRIBED CALL ON TUESDAY MORNING TO SCHEDULE OUTPATIENT ULTRASOUND NOTHING TO EAT OR DRINK AFTER MIDNIGHT, THE NIGHT BEFORE YOUR TEST CLEAR LIQUIDS--WATER, BROTH, JELLO, GATORADE BRATS DIET--BANANAS, RICE, APPLESAUCE, TOAST, SALTINES FOLLOW UP WITH DR. RAZA NEXT WEEK FOR FURTHER CARE RETURN TO ER IF WORSE All discharge instructions reviewed with patient and/or family. Voiced understanding. Scripts Ondansetron (Ondansetron Odt) 4 Mg Tab.rapdis 4 MG PO Q4H for Nausea/Vomiting, #10 TAB Prov: LAY JAVIER DO 03/27/21 Hydrocodone/Acetaminophen (Hydrocodone-Acetamin 5-325 mg) 1 Each Tablet 0.5-1 EACH PO Q4-6 HOURS PRN for PAIN, #10 TAB Prov: LAY JAVIER DO 03/27/21 Hyoscyamine Sulfate (Levsin-Sl) 0.125 Mg Tab.subl 0.25 MG SL Q4H, #15 TAB Prov: LAY JAVIER DO 03/27/21 LAY JAVIER DO Mar 27, 2021 18:39
[2021-03-27 18:47] LABS: BILIRUBIN,URINE NEGATIVE (NEGATIVE); CLARITY,URINE CLEAR; COLOR,URINE YELLOW; GLUCOSE, URINE (UA) NEGATIVE (NEGATIVE); KETONES,URINE NEGATIVE (NEGATIVE); LEUKOCYTE ESTERASE ,URINE NEGATIVE (NEGATIVE); NITRITE,URINE NEGATIVE (NEGATIVE); PROTEIN,URINE NEGATIVE (NEGATIVE)
[2021-03-27 18:48] LABS: BASOPHILS # (AUTO) 0.1 10^3/uL (0.0-0.1); BASOPHILS % (AUTO) 1 % (0-10); EOSINOPHILS # (AUTO) 0.3 10^3/uL (0.0-0.3); EOSINOPHILS % (AUTO) 3 % (0-10); HEMATOCRIT 42 % (35-52); HEMOGLOBIN 13.6 g/dL (11.5-16.0); LYMPHOCYTES # (AUTO) 1.5 10^3/uL (1.0-4.0); LYMPHOCYTES % (AUTO) 19 % (12-44); MEAN CORPUSCULAR HEMOGLOBIN 28 pg (25-34); MEAN CORPUSCULAR HGB CONC 33 g/dL (32-36); MEAN CORPUSCULAR VOLUME 88 fL (80-99); MEAN PLATELET VOLUME 10.2 fL (9.0-12.2); MONOCYTES # (AUTO) 0.8 10^3/uL (0.0-1.0); MONOCYTES % (AUTO) 10 % (0-12); NEUTROPHILS # (AUTO) 5.3 10^3/uL (1.8-7.8); NEUTROPHILS % (AUTO) 67 % (42-75); PLATELET COUNT 260 10^3/uL (130-400); WHITE BLOOD COUNT 7.9 10^3/uL (4.3-11.0)
[2021-03-27 18:57] LABS: ALBUMIN 4.3 GM/DL (3.2-4.5)
[2021-03-27 18:58] LABS: CHLORIDE 104 MMOL/L (98-107); POTASSIUM 4.2 MMOL/L (3.6-5.0); SODIUM 139 MMOL/L (135-145)
[2021-03-27 18:59] LABS: AMYLASE 89 U/L (25-125); BACTERIA,URINE NEGATIVE /HPF; CALCIUM 9.8 MG/DL (8.5-10.1)
[2021-03-27 19:00] LABS: GLUCOSE 100 MG/DL (70-105); PROTHROMBIN TIME PATIENT 13.3 SEC (12.2-14.7); SQUAMOUS EPITHELIAL CELL,UR RARE /HPF
[2021-03-27 19:01] LABS: CARBON DIOXIDE 23 MMOL/L (21-32)
[2021-03-27 19:02] LABS: BILIRUBIN,TOTAL 0.4 MG/DL (0.1-1.0)
[2021-03-27 19:03] LABS: ALKALINE PHOSPHATASE 59 U/L (40-136)
[2021-03-27 19:04] LABS: CREATININE SERUM 1.21 MG/DL (0.60-1.30); GFR ESTIMATED 43
[2021-03-27 19:05] LABS: BUN/CREATININE RATIO 11
[2021-03-27 19:06] LABS: ALANINE AMINOTRANSFERASE 24 U/L (0-55); MAGNESIUM 1.9 MG/DL (1.6-2.4)
[2021-03-27 19:07] LABS: CREATINE KINASE 64 U/L (29-168); LIPASE 55 U/L (8-78)
[2021-03-27 19:14] LABS: CREATINE KINASE MB 1.2 NG/ML (<6.6)
--- NOTE | 2021-03-27 19:41 | Diagnostic Imaging Report ---
INDICATION: Epigastric pain EXAMINATION: Chest 03/27/2021 COMPARISON: 08/27/2020 FINDINGS: There is cardiomegaly. Pulmonary vasculature unremarkable. Lungs clear. No effusions. No pneumothorax. IMPRESSION: 1. No acute cardiopulmonary process. Dictated by: Dictated on workstation # [id number]
[2021-03-27] MEDS ORDERED: HOLD METFORMIN - RECEIVED CONTRAST 20 ML VIAL IV SCH (19:45)
[2021-03-27] MEDS ORDERED: LACTATED RINGERS 1,000 ML IV ONE (19:45)
[2021-03-27] MEDS ORDERED: IOHEXOL 350 MG/ML 100 ML (OMNIPAQUE 350) VIAL IV ONE (19:45)
[2021-03-27] MEDS ORDERED: NS 100 ML (IVPB) BAG IV ONE (19:45)
--- NOTE | 2021-03-27 20:02 | Diagnostic Imaging Report ---
PROCEDURE: CT abdomen and pelvis with contrast. TECHNIQUE: Multiple contiguous axial images were obtained through the abdomen and pelvis after administration of intravenous contrast. Auto Exposure Controls were utilized during the CT exam to meet ALARA standards for radiation dose reduction. All CT scans use one or more of the following dose optimizing techniques: automated exposure control, MA and/or KvP adjustment based on patient size and exam type or iterative reconstruction. INDICATION: Epigastric pain EXAMINATION: CT abdomen and pelvis with contrast 03/27/2021 COMPARISON: 03/28/2014 FINDINGS: The lung bases appear clear. There is diffuse fatty infiltration throughout the liver with multiple small hypodensities noted. Larger hypodensities in the inferior aspect of the liver simple in appearance. Gallbladder unremarkable. There are small hypodensities in the spleen too small for characterization. There are multiple simple appearing cysts within the kidneys. The adrenal glands unremarkable. Pancreas unremarkable. There is no ascites or free air. No inflammatory changes seen about the loops of bowel. There is diffuse degenerative disease within the osseous structures. No acute osseous abnormality. IMPRESSION: 1. Incidental findings with no acute process appreciated. Dictated by: Dictated on workstation # [id number]
[2021-03-27] MEDS ORDERED: ACHD5005 PO (20:19)
[2021-03-27] MEDS ORDERED: HYOS0.1283 SL (20:19)
[2021-03-27] MEDS ORDERED: RX-ONDANSETRON 4 MG ODT (ZOFRAN) PPK #4 PO STA (20:20)
[2021-03-27] MEDS ORDERED: RX-HYOSCYAMINE 0.125 MG SL (LEVSIN) PPK#6 SL STA (20:20)
[2021-03-27] MEDS ORDERED: ONDA4TAB11 PO (20:20)
[2021-03-27 20:30] VITALS: BP 177/92
== END 2021-03-27 20:37 | disposition home or self-care (01) ==
LOC: EDUNIT# 17:15 → ER 17:16
DX: R10.13 Epigastric pain (principal); I10 Essential (primary) hypertension; K21.9 Gastro-esophageal reflux disease without esophagitis; G20 Parkinson's disease; Z79.899 Other long term (current) drug therapy
CPT/HCPCS: 36415; 71045; 74177; 80053; 81000; 82150; 82550; 82553; 83690; 83735; 83874; 83880; 84484; 85025; 85610; 85730; 93005; 93041; 96360

== ENCOUNTER → 2021-03-30 | Outpatient (CLI) | payer MEDICARE ==
[~2021-03-30] MED LIST changes: +ACHD5005 PO; +HYOS0.1283 SL; +ONDA4TAB11 PO
--- NOTE | 2021-03-30 12:35 | Diagnostic Imaging Report ---
INDICATION: Epigastric pain. PROCEDURE: Ultrasound abdomen complete. TECHNIQUE: Multiple real-time grayscale images were obtained of the abdomen in various projections. FINDINGS: Liver is upper limits of normal at 18 cm. There are numerous liver cysts present. Left lobe cyst measures 3.2 x 1.4 x 1.9 cm. Right lobe cyst measures 5.5 x 4.8 x 4.7 cm. There are additional smaller cysts present as well. No solid liver lesion is seen. Portal vein is patent and shows normal direction of flow. The gallbladder is without stones or sludge. No wall thickening or biliary ductal dilatation is seen. Spleen is normal in size at 9.8 cm. Pancreas is unremarkable. Aorta is nonaneurysmal. IVC is patent. Both kidneys are without calculi or hydronephrosis. There appears to be a tiny cyst in the upper pole of the left kidney approximately 8 mm in size. There is no ascites. IMPRESSION: 1. Hepatic and renal cysts. 2. No evidence of cholelithiasis or acute cholecystitis. Dictated by: Dictated on workstation # [id number]
== END ==
LOC: RAD 10:17
PROVIDERS: ATTEND Emergency Medicine
DX: K76.89 Other specified diseases of liver (principal); N28.1 Cyst of kidney, acquired
CPT/HCPCS: 76700

== ENCOUNTER 2021-06-05 18:15 | Emergency (ER) | payer MEDICARE ==
[~2021-06-05] VITALS: Ht 152 cm; Wt 70.3 kg
[2021-06-05] MEDS ORDERED: ACETAMINOPHEN 325 MG TABLET PO ONE (18:30)
--- NOTE | 2021-06-05 18:37 | ED Head Injury ---
General Stated Complaint: FALL/HEAD LAC/BILAT KNEE INJ Source: patient, family Exam Limitations: no limitations History of Present Illness Date Seen by Provider: Jun 05, 2021 Time Seen by Provider: 18:33 Initial Comments Patient is a 80-year-old female who presents the ED with family for a fall. History of Parkinson's. Patient fell within the past 30 minutes. She was walking on the sidewalk missed a step landing on her face resulting in a contusion above her right eye. Superficial abrasion noted. Denied of any loss of consciousness or on blood thinners. She reports some mild pain to the right side of her face and right-sided head. She reports headache rates 8 out of 10. Denies taking thing for pain. denies any neck pain, back pain. She did land on her knees and hands with associated pain. Abrasions noted to the hand and bilateral knees. History of left knee replacement in the past. She is moving all extremities without difficulties. No vomiting, change in mental status, visual changes, chest pain, cough, shortness of breath. This was mechanical fall. Not up-to-date on her tetanus within the past 5 years. Allergies and Home Medications Allergies Coded Allergies: No Known Drug Allergies (Unverified , 03/10/16) Patient Home Medication List Home Medication List Reviewed: Yes Cetirizine Hcl (Zyrtec) 10 Mg Capsule, 10 MG PO, (Reported) Entered as Reported by: RENNY BROCK on 04/13/12 0950 Citalopram Hydrobromide (Citalopram HBr) 20 Mg Tablet, 20 MG PO DAILY, (Reported) Entered as Reported by: FAYE MARINO on 03/12/16 0918 Hydrocodone/Acetaminophen (Hydrocodone-Acetamin 5-325 mg) 1 Each Tablet, 0.5-1 EACH PO Q4-6 HOURS PRN for PAIN Prescribed by: LAY JAVIER on 03/27/212018 Hyoscyamine Sulfate (Levsin-Sl) 0.125 Mg Tab.subl, 0.25 MG SL Q4H Prescribed by: LAY JAVIER on 03/27/212018 Omeprazole (Prilosec 20 Mg) 20 Mg Capsule.dr, 20 MG PO DAILY, (Reported) Entered as Reported by: RENNY BROCK on 04/13/12 0946 Ondansetron (Ondansetron Odt) 4 Mg Tab.rapdis, 4 MG PO Q4H Prescribed by: LAY JAVIER on 03/27/212019 Vitamin B Complex & Vit C No.4 (Super B Complex) 150 Mg Tablet, 150 MG PO DAILY, (Reported) Entered as Reported by: FAYE MARINO on 03/12/16 0918 Review of Systems Review of Systems Constitutional: No chills, No diaphoresis, No dizziness, No fever Eyes: Denies Blindness, Denies Blurred Vision, Denies Foreign Body Sensation, Denies Inflammation, Denies Photophobia, Denies Glasses Ears, Nose, Mouth, Throat: denies ear pain, denies ear discharge, denies nose pain, denies nose discharge Respiratory: No cough, No dyspnea on exertion, No orthopnea, No short of breath Cardiovascular: No chest pain, No edema Gastrointestinal: No abdominal pain, No nausea, No vomiting Musculoskeletal: joint pain, muscle pain Skin: change in color, other (skin abrasion) Psychiatric/Neurological: Headache Past Mgmeiji-Yhotuc-Kipulv Hx Immunizations Up To Date First/Initial COVID19 Vaccinat: 06/2020 Second COVID19 Vaccination Alexis: 06/2020 Seasonal Allergies Seasonal Allergies: Yes Past Medical History Surgery/Hospitalization HX: 02/2016--COLONOSCOPY/POLYPECTOMY 03/2014--EGD/GASTRIC POLYPS X 2 BILATERAL CATARACT SURGERY LEFT KNEE REPLACEMENT Surgeries: Yes (CATARACTS BILAT, LEFT KNEE REPLACEMENT) Section, Eye Surgery, Joint Replacement, Orthopedic Respiratory: No Cardiac: Yes Hypertension Neurological: Yes Parkinson's Disease Reproductive Disorders: No Female Reproductive Disorders: Denies VISE HAND History: Menopausal Sexually Transmitted Disease: No HIV/AIDS: No Genitourinary: Yes UTI-Chronic Gastrointestinal: Yes Gastroesophageal Reflux Musculoskeletal: Yes (LEFT KNEE REPLACEMENT) Arthritis Endocrine: No HEENT: Yes Cataract Loss of Vision: Bilateral Hearing Impairment: Denies Cancer: No Psychosocial: No Integumentary: No Blood Disorders: No Adverse Reaction/Blood Tranf: No (HAS HAD BLOOD WITH NO REACTION) Physical Exam Vital Signs Vital Signs - First Documented 06/05/21 18:38 Temp 36.2 Pulse 98 Resp 18 B/P (MAP) 180/91 (120) Pulse Ox 96 Capillary Refill : Height, Weight, BMI Height: 5'2.00" Weight: 165lbs. 0.0oz. 74.594236go; 26.00 BMI Method:Stated General Appearance: WD/WN, mild distress HEENT: PERRL/EOMI, TMs normal, pharynx normal, other (Contusion with a superficial linear abrasion above the right orbit. No crepitus or step-off.) Neck: non-tender, full range of motion, supple, normal inspection Cardiovascular: regular rate, rhythm, no edema, no gallop, no JVD Respiratory: chest non-tender, lungs clear, normal breath sounds, no respiratory distress, no accessory muscle use Gastrointestinal: normal bowel sounds, non tender, no organomegaly Back: normal inspection, no CVA tenderness, no vertebral tenderness Extremities: other (Tenderness bilateral anterior knees with normal active range of motion. No laxity with valgus or varus stress. Negative anterior posterior drawer test. Bilateral upper extremity dorsum hand tenderness with skin abrasions.) Psychiatric: alert, oriented x 3 Motor/Sensory: no motor deficit, no sensory deficit Skin: other (Superficial laceration above right orbit. Contusion noted. Abrasions noted bilateral knees, bilateral hands.) Progress/Results/Core Measures Results/Orders My Orders Orders - DHRUV NICOLE Knee, 3 Views, Bilateral (06/05/21 18:30) Hand, 3 Views, Bilateral (06/05/21 18:30) Acetaminophen Tablet/Caplet (Tylenol T (06/05/21 18:30) Ct Head/Face/Cervical Wo (06/05/21 18:30) Dipht,Pertuss(Acell),Tet Adult (Boostrix (06/05/21 18:45) Medications Given in ED Current Medications Medications Dose Ordered Sig/Buddy Route Start Time Stop Time Status Last Admin Dose Admin Acetaminophen 650 mg ONCE ONCE PO 06/05/21 18:30 06/05/21 18:33 DC 06/05/21 18:47 650 MG Diphtheria/ Tetanus/Acell Pertussis 0.5 ml ONCE ONCE IM 06/05/21 18:45 06/05/21 18:46 DC 06/05/21 18:50 0.5 ML Vital Signs/I&O 06/05/21 18:38 Temp 36.2 Pulse 98 Resp 18 B/P (MAP) 180/91 (120) Pulse Ox 96 Departure Communication (Admissions) Patient has a contusion above her right orbit. No trauma to the eyeball. Patient moving all extremities. She was able to walk in here in the ED. She has a superficial abrasion overlying the hematoma. No sutures needed. Abrasions to the hand and knee. X-rays of bilateral knees and hand negative for fracture. CT head, maxillofacial and cervical neck was unremarkable. Patient was given Tylenol here. Ice was applied over the hematoma. Patient was given a tetanus shot. She is feeling much better at this time. No neurological red flag findings. No changing of her symptoms besides improvement of her headache. Outpatient follow-up. Discussed with patient and family she may develop concussion-like symptoms. Continue monitoring at home. If any change of her symptoms return back to ED for further evaluation. Impression Primary Impression: Contusion of forehead Disposition: 01 HOME, SELF-CARE Condition: Stable Departure-Patient Inst. Decision time for Depature: 19:42 Referrals: TATIANNA RAZA MD (PCP/Family) Primary Care Physician Patient Instructions: Contusion (DC) Add. Discharge Instructions: Recommend Tylenol at home for pain. Recommend ice to help with swelling. Follow-up with your PCP next week for reevaluation. If any worsening symptoms return back to ED for further evaluation. DHRUV NICOLE Jun 05, 2021 18:37
[2021-06-05] MEDS ORDERED: TETANUS,DIPTH,PERTUSS P/F (BOOSTRIX) 0.5 ML VIAL IM ONE (18:45)
--- NOTE | 2021-06-05 19:25 | Diagnostic Imaging Report ---
PROCEDURE: CT head, face, and cervical spine without contrast. TECHNIQUE: Multiple contiguous axial images were obtained through the head, neck, and facial bones without the use of intravenous contrast. Sagittal and coronal reformations through the cervical spine and facial bones were also performed. Auto Exposure Controls were utilized during the CT exam to meet ALARA standards for radiation dose reduction. INDICATION: Fall. Head and neck pain. Scalp contusion. Facial bruising. COMPARISON: 01/16/2020. FINDINGS: CT head: The ventricles and cortical sulci are age-appropriate. There is no midline shift or mass-effect. No acute intracranial hemorrhage is seen. There is no CT evidence of acute territorial ischemia. No focal masses or collections are present. The calvarium is intact. Scalp hematoma is seen overlying the forehead right of midline. CT face: No acute facial fractures are visualized. The mandible, zygomatic arches, and pterygoid plates are intact. The bilateral TMJ demonstrate normal articulation. No nasal bone fractures. The bony nasal septum is slightly deviated to the right without fracture. The paranasal sinuses and mastoid air cells are well pneumatized. The globes and orbits are symmetric and unremarkable. No evidence of orbital rim fracture. CT cervical spine: No acute fracture or dislocation is seen in the cervical spine. No focal osseous lesions. Vertebral body heights are well-maintained. Moderate degenerative changes are seen in the cervical spine with disc osteophyte complexes and uncovertebral arthropathy. The craniocervical junction is well-maintained. Soft tissues of the neck are unremarkable. The included lung apices are clear. IMPRESSION: 1. No hemorrhage or focal intra-axial mass. No CT evidence of large acute territorial ischemia. 2. No acute fracture or dislocation in the cervical spine. 3. Scalp hematoma overlying the forehead right of midline. No acute facial fractures. Dictated by: Dictated on workstation # [id number]
--- NOTE | 2021-06-05 19:27 | Diagnostic Imaging Report ---
Indication: Fall. Bilateral knee pain. COMPARISON: None. FINDINGS: 3 views left knee, 3 views of the right knee. There is an intact left knee arthroplasty. Moderate degenerative changes seen involving the right knee. There is no joint effusion, fracture or dislocation. IMPRESSION: No fracture identified. Dictated by: Dictated on workstation # [id number]
--- NOTE | 2021-06-05 19:28 | Diagnostic Imaging Report ---
Indication: Fall bilateral hand pain. Comparison none findings: 3 views left hand, 3 views the right hand. There is no fracture dislocation. Degenerative joint disease is seen bilaterally. No foreign body seen. IMPRESSION: No fracture identified. Dictated by: Dictated on workstation # [id number]
[2021-06-05 19:58] VITALS: BP 167/88
== END 2021-06-05 19:58 | disposition home or self-care (01) ==
LOC: EDUNIT# 18:15 → ER 18:18
DX: S00.83XA Contusion of other part of head, initial encounter (principal); S80.212A Abrasion, left knee, initial encounter; S80.211A Abrasion, right knee, initial encounter; S60.512A Abrasion of left hand, initial encounter; S60.511A Abrasion of right hand, initial encounter; I10 Essential (primary) hypertension; G20 Parkinson's disease; K21.9 Gastro-esophageal reflux disease without esophagitis; Z23 Encounter for immunization; Z79.899 Other long term (current) drug therapy; W18.30XA Fall on same level, unspecified, initial encounter
CPT/HCPCS: 70450; 70486; 72125; 90715

== ENCOUNTER 2022-04-19 17:47 | Emergency (ER) | payer MEDICARE ==
[~2022-04-19] VITALS: Ht 152.4 cm; Wt 71.2 kg
[2022-04-19 18:25] LABS: BASOPHILS % (AUTO) 0 % (0-10); EOSINOPHILS # (AUTO) 0.5 10^3/uL (0.0-0.3); EOSINOPHILS % (AUTO) 6 % (0-10); HEMATOCRIT 36 % (35-52); HEMOGLOBIN 11.7 g/dL (11.5-16.0); LYMPHOCYTES # (AUTO) 1.6 10^3/uL (1.0-4.0); LYMPHOCYTES % (AUTO) 21 % (12-44); MEAN CORPUSCULAR HEMOGLOBIN 28 pg (25-34); MEAN CORPUSCULAR HGB CONC 33 g/dL (32-36); MEAN CORPUSCULAR VOLUME 86 fL (80-99); MEAN PLATELET VOLUME 9.9 fL (9.0-12.2); MONOCYTES # (AUTO) 0.7 10^3/uL (0.0-1.0); MONOCYTES % (AUTO) 9 % (0-12); NEUTROPHILS % (AUTO) 64 % (42-75); PLATELET COUNT 234 10^3/uL (130-400); WHITE BLOOD COUNT 7.9 10^3/uL (4.3-11.0)
[2022-04-19 18:35] LABS: POTASSIUM 4.1 MMOL/L (3.6-5.0)
[2022-04-19 18:37] LABS: TOTAL PROTEIN 6.6 GM/DL (6.4-8.2)
[2022-04-19 18:39] LABS: BILIRUBIN,TOTAL 0.5 MG/DL (0.1-1.0)
--- NOTE | 2022-04-19 18:39 | ED Lower Extremity ---
General Chief Complaint: Lower Extremity Stated Complaint: L LEG SWELLING Nursing Triage Note: PT AMB TO [facility] 6 W C/O LEFT LEG SWELLING SX 04/06/22, WORSE TODAY. PT HAS BRUISING NOTED TO LLE, KNEE REPLACEMENT IN 2013. PT CONCERNED FOR BLOOD CLOTS. A&OX4. Source: patient, other (DAUGHTER) History of Present Illness Date Seen by Provider: Apr 19, 2022 Time Seen by Provider: 18:03 Initial Comments PT ARRIVES VIA POV FROM HOME WITH DAUGHTER C/O SWELLING AND BRUISING TO LEFT LOWER LEG, BELOW THE KNEE STATES IT IS NOT PAINFUL JUST NOTICED THE BRUISING LAST TUESDAY, AND APPEARS MORE BRUISED TODAY SHE HAS HAD A PRIOR LEFT KNEE REPLACEMENT IN 2013 ON , HER LEFT KNEE POPPED SHE WENT TO A [facility]ALK [facility] ON 04/12/22 AND XRAYS WERE DONE. THINKS THEY XRAY'D HER KNEE, BUT IS NOT SURE. PRIOR TO THAT, ON APRIL 07, SHE WAS SEEN BY SHAVING MACHINE OPERATOR/FRANCISCA OLIVAREZ IN [place]/[facility] 4 STATES FOR FOLLOW UP OF BACK PAIN AND LEG PAIN, AND MRI HAD BEEN DONE PRIOR TO THAT ON APRIL 05. IT SHOWED MULTILEVEL DEGENERATIVE CHANGES WITH MILD DISC BULGING. SHE BRINGS COPY OF MRI REPORT. SHE NOTED BRUISING TO HER LEFT KNEE ON 04/15/22 NOTICED SWELLING TO HER LEFT LOWER LEG 04/18/22. STATES HER KNEE IS FEELING BETTER., AND THE KNEE IS NOT BRUISED OR SWOLLEN NO CHEST PAIN OR SHORTNESS OF BREATH NO PALPITATIONS, DIZZINESS OR SYNCOPE NO FEVER/SWEATS/CHILLS. NO PARESTHESIAS OR MOTOR DEFICITS. PT IS NOT ON ASPIRIN OR BLOOD THINNERS. PCP: DR. RAZA Allergies and Home Medications Allergies Coded Allergies: No Known Drug Allergies (Unverified , 03/10/16) Patient Home Medication List Home Medication List Reviewed: Yes Cetirizine Hcl (Zyrtec) 10 Mg Capsule, 10 MG PO, (Reported) Entered as Reported by: RENNY BROCK on 04/13/12 0950 Citalopram Hydrobromide (Citalopram HBr) 20 Mg Tablet, 20 MG PO DAILY, (Reported) Entered as Reported by: FAYE MARINO on 03/12/16 0918 Hydrocodone/Acetaminophen (Hydrocodone-Acetamin 5-325 mg) 1 Each Tablet, 0.5-1 EACH PO Q4-6 HOURS PRN for PAIN Prescribed by: LAY JAVIER on 03/27/212018 Hyoscyamine Sulfate (Levsin-Sl) 0.125 Mg Tab.subl, 0.25 MG SL Q4H Prescribed by: LAY JAVIER on 03/27/212018 Omeprazole (Prilosec 20 Mg) 20 Mg Capsule.dr, 20 MG PO DAILY, (Reported) Entered as Reported by: RENNY BROCK on 04/13/12 0946 Ondansetron (Ondansetron Odt) 4 Mg Tab.rapdis, 4 MG PO Q4H Prescribed by: LAY JAVIER on 03/27/212019 Vitamin B Complex & Vit C No.4 (Super B Complex) 150 Mg Tablet, 150 MG PO DAILY, (Reported) Entered as Reported by: FAYE MARINO on 03/12/16 0918 Review of Systems Constitutional: no symptoms reported Respiratory: no symptoms reported Cardiovascular: no symptoms reported Gastrointestinal: no symptoms reported Musculoskeletal: see HPI Skin: see HPI Psychiatric/Neurological: No Symptoms Reported Past Knbawsu-Gaeror-Kxbczo Hx Patient Social History Tobacco Use?: No Use of E-Cig and/or Vaping dev: No Substance use?: No Alcohol Use?: Yes Alcohol Frequency: Once in a while Immunizations Up To Date First/Initial COVID19 Vaccinat: 2020 Second COVID19 Vaccination Alexis: 2020 Third COVID19 Vaccination Date: 2020 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 Seasonal Allergies Seasonal Allergies: Yes Past Medical History Surgery/Hospitalization HX: 02/2016--COLONOSCOPY/POLYPECTOMY 03/2014--EGD/GASTRIC POLYPS; X 2; BILATERAL CATARACT SURGERY; LEFT KNEE REPLACEMENT PMH: PARKINSONS Surgeries: Yes (CATARACTS BILAT, LEFT KNEE REPLACEMENT) Section, Eye Surgery, Joint Replacement, Orthopedic Respiratory: No Cardiac: Yes Hypertension Neurological: Yes Parkinson's Disease Reproductive Disorders: No 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 Sexually Transmitted Disease: No HIV/AIDS: No Genitourinary: Yes UTI-Chronic Gastrointestinal: Yes Gastroesophageal Reflux Musculoskeletal: Yes (LEFT KNEE REPLACEMENT) Degenerate Disk Disease, Arthritis, Chronic Back Pain Endocrine: No HEENT: Yes Cataract Loss of Vision: Bilateral Hearing Impairment: Denies Cancer: No Psychosocial: No Integumentary: No Blood Disorders: No Adverse Reaction/Blood Tranf: No (HAS HAD BLOOD WITH NO REACTION) Physical Exam Vital Signs Vital Signs - First Documented 04/19/22 17:52 Temp 36.7 Pulse 98 Resp 18 B/P (MAP) 157/83 (107) Pulse Ox 95 O2 Delivery Room Air Capillary Refill : Less Than 3 Seconds Height, Weight, BMI Height: 5'2.00" Weight: 165lbs. 0.0oz. 74.948811kj; 30.00 BMI Method:Stated General Appearance: WD/WN, no apparent distress Hips: bilateral hip non-tender, bilateral hip normal inspection, bilateral hip normal range of motion, bilateral hip no evidence of injury Legs: left leg non-tender, left leg other (THERE IS DIFFUSE/CIRCUMFERENTIAL OLD / FADED YELLOW BRUISING TO LEFT LOWER LEG, STARTING A FEW CENTIMENTERS BELOW THE KNEE DOWN TO LEFT ANKLE-THERE IS OLD, DARK PURPLE BRUISING TO THE ANKLE AREA. THIS ALL APPEARS TO BE DEPENDENT BRUISING FROM PRIOR INJURY. FULL ROM. SENSORY/VASCULAR INTACT. PULSES +2/4 BILATERALLY. THERE IS TRACE EDEMA TO LEFT LOWER LEG DOWN TO ANKLE, BUT NO SWELLING TO FOOT ITSELF. AREAS ARE NON-TENDER. NO CALF TENDERNESS. NO CORDING. NEGATIVE NATALI'S. NO BONY TENDERNESS. 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, no motor/sensory deficits, alert, normal mood/affect, oriented x 3 Skin: warm/dry, ecchymosis ( NOTED ABOVE.) Progress/Results/Core Measures Results/Orders Lab Results Laboratory Tests Test 04/19/22 18:15 Range/Units White Blood Count 7.9 4.3-11.0 10^3/uL Red Blood Count 4.17 3.80-5.11 10^6/uL Hemoglobin 11.7 11.5-16.0 g/dL Hematocrit 36 35-52 % Mean Corpuscular Volume 86 80-99 fL Mean Corpuscular Hemoglobin 28 25-34 pg Mean Corpuscular Hemoglobin Concent 33 32-36 g/dL Red Cell Distribution Width 13.2 10.0-14.5 % Platelet Count 234 130-400 10^3/uL Mean Platelet Volume 9.9 9.0-12.2 fL Immature Granulocyte % (Auto) 0 % Neutrophils (%) (Auto) 64 42-75 % Lymphocytes (%) (Auto) 21 12-44 % Monocytes (%) (Auto) 9 0-12 % Eosinophils (%) (Auto) 6 0-10 % Basophils (%) (Auto) 0 0-10 % Neutrophils # (Auto) 5.0 1.8-7.8 10^3/uL Lymphocytes # (Auto) 1.6 1.0-4.0 10^3/uL Monocytes # (Auto) 0.7 0.0-1.0 10^3/uL Eosinophils # (Auto) 0.5 H 0.0-0.3 10^3/uL Basophils # (Auto) 0.0 0.0-0.1 10^3/uL Immature Granulocyte # (Auto) 0.0 0.0-0.1 10^3/uL Prothrombin Time 13.7 12.2-14.7 SEC INR Comment 1.0 0.8-1.4 Activated Partial Thromboplast Time 30 24-35 SEC D-Dimer 0.97 H 0.00-0.49 UG/ML Sodium Level 140 135-145 MMOL/L Potassium Level 4.1 3.6-5.0 MMOL/L Chloride Level 107 98-107 MMOL/L Carbon Dioxide Level 24 21-32 MMOL/L Anion Gap 9 5-14 MMOL/L Blood Urea Nitrogen 20 H 7-18 MG/DL Creatinine 1.13 0.60-1.30 MG/DL Estimat Glomerular Filtration Rate 48 BUN/Creatinine Ratio 18 Glucose Level 111 H 70-105 MG/DL Calcium Level 10.0 8.5-10.1 MG/DL Corrected Calcium 10.0 8.5-10.1 MG/DL Total Bilirubin 0.5 0.1-1.0 MG/DL Aspartate Amino Transf (AST/SGOT) 21 5-34 U/L Alanine Aminotransferase (ALT/SGPT) 9 0-55 U/L Alkaline Phosphatase 58 40-136 U/L Total Protein 6.6 6.4-8.2 GM/DL Albumin 4.0 3.2-4.5 GM/DL My Orders Orders - LAY JAVIER DO Ed Iv/Invasive Line Start (04/19/22 18:12) Cbc With Automated Diff (04/19/22 18:12) Comprehensive Metabolic Panel (04/19/22 18:12) Fibrin Degradation Products (04/19/22 18:12) Protime With Inr (04/19/22 18:12) Partial Thromboplastin Time (04/19/22 18:12) Vital Signs/I&O 04/19/22 17:52 Temp 36.7 Pulse 98 Resp 18 B/P (MAP) 157/83 (107) Pulse Ox 95 O2 Delivery Room Air Blood Pressure Mean: 107 Progress Progress Note : Progress Note PT WANTS CHECKED FOR BLOOD CLOT NO ULTRASOUND AVAILABILITY AT THIS HOUR. EXAM DOES NOT APPEAR TO BE CONSISTENT WITH DVT. APPEARS TO BE OLD DEPENDENT BRUISING. POSSIBLY FROM HER KNEE POPPING EARLIER IN THE MONTH. THE KNEE HAS BEEN EVALUATED LAST WEEK AND XRAYS WERE REPORTEDLY NORMAL. SHE IS NOT HAVING ANY PAIN TO KNEE AT THIS TIME. WILL ORDER OUTPATIENT ULTRASOUND OF LEFT LEG, AND HAVE PT FOLLOW UP WITH HER PCP THIS WEEK FOR FOLLOW UP. SHE WAS ALSO ADVISED TO FOLLOW UP WITH ORTHOPEDICS FOR HER HISTORY OF KNEE POPPING. AT DISMISSAL. PT STATES SHE HAS AN APPOINTMENT THIS Tuesday04/21/[address] RAZA Departure Impression Primary Impression: LEFT LOWER LEG BRUISING Disposition: HOME, SELF-CARE Condition: Stable Departure-Patient Inst. Decision time for Depature: 19:10 Referrals: TATIANNA RAZA MD (PCP/Family) Primary Care Physician Patient Instructions: Dependent Edema (DC), Taking Care of Bruises Add. Discharge Instructions: ELEVATE LEG MUCH POSSIBLE TAKE 325 MG ASPIRIN, UNTIL YOU ARE RECHECKED AND CLEARED BY YOUR DR. CALL IN THE MORNING TO SCHEDULE OUTPATIENT ULTRASOUND OF YOUR LEG. FOLLOW UP WITH DR. RAZA THIS WEEK SCHEDULED FOR RECHECK OF THIS PROBLEM FOLLOW UP WITH YOUR ORTHOPEDIC SURGEON FOR FURTHER EVALUATION OF YOUR KNEE. All discharge instructions reviewed with patient and/or family. Voiced understanding. LAY JAVIER DO Apr 19, 2022 18:39
[2022-04-19 18:41] LABS: CREATININE SERUM 1.13 MG/DL (0.60-1.30)
[2022-04-19 18:43] LABS: FIBRIN DEGRADATION PRODUCTS 0.97 UG/ML (0.00-0.49); PROTHROMBIN TIME PATIENT 13.7 SEC (12.2-14.7)
[2022-04-19 19:45] VITALS: BP 145/77
== END 2022-04-19 19:45 | disposition home or self-care (01) ==
LOC: EDUNIT# 17:47 → ER 17:48
DX: S80.02XA Contusion of left knee, initial encounter (principal); Z96.652 Presence of left artificial knee joint; X58.XXXA Exposure to other specified factors, initial encounter
CPT/HCPCS: 36415; 80053; 85025; 85379; 85610; 85730; 99281

== ENCOUNTER → 2022-04-20 | Outpatient (CLI) | payer MEDICARE ==
--- NOTE | 2022-04-20 14:05 | Diagnostic Imaging Report ---
PROCEDURE: US left lower extremity venous. TECHNIQUE: Multiple real-time grayscale images were obtained over the left lower extremity in various projections. Additional duplex Doppler and color Doppler images were also obtained. INDICATION: Left leg swelling. FINDINGS: There is no evidence of left lower extremity DVT. The left lower extremity deep venous system shows normal compressibility with normal response to augmentation and Valsalva. No fluid collection or mass is detected. IMPRESSION: No evidence of left lower extremity DVT. Dictated by: Dictated on workstation # [id number]
== END ==
LOC: RAD 13:00
PROVIDERS: ATTEND Emergency Medicine
DX: R22.42 Localized swelling, mass and lump, left lower limb (principal); S80.12XA Contusion of left lower leg, initial encounter; X58.XXXA Exposure to other specified factors, initial encounter

== ENCOUNTER 2023-02-01 21:41 | Emergency (ER) | payer MEDICARE ==
[~2023-02-01] VITALS: Ht 152.4 cm; Wt 70.0 kg
[2023-02-01 21:45] VITALS: BP 148/84
[2023-02-01] MEDS ORDERED: ASPIRIN 81 MG CHEWABLE TABLET PO ONE (22:00)
[2023-02-01] MEDS ORDERED: ACETAMINOPHEN 500 MG TABLET PO ONE (22:15)
--- NOTE | 2023-02-01 22:15 | ED Cardiac General ---
History of Present Illness General Chief Complaint: Chest Pain Stated Complaint: CHEST PAIN Nursing Triage Note: Pt presents with c/o chest pain that started around 1600 today. She denies doing anything at the time. She reports she started not feeling well with tightness under breasts and headache with onset. Pt also reports being light headed and feels like she needs to take a deep breath at times. Source: patient History of Present Illness Date Seen by Provider: Feb 01, 2023 Time Seen by Provider: 21:58 Initial Comments PT ARRIVES VIA POV FROM HOME WITH DAUGHTER Allergies and Home Medications Allergies Coded Allergies: No Known Drug Allergies (Unverified , 03/10/16) Patient Home Medication List Cetirizine Hcl (Zyrtec) 10 Mg Capsule, 10 MG PO, (Reported) Entered as Reported by: RENNY BROCK on 04/13/12 0950 Citalopram Hydrobromide (Citalopram HBr) 20 Mg Tablet, 20 MG PO DAILY, (Reported) Entered as Reported by: FAYE MARINO on 03/12/16 09 Hydrocodone/Acetaminophen (Hydrocodone-Acetamin 5-325 mg) 1 Each Tablet, 0.5-1 EACH PO Q4-6 HOURS PRN for PAIN Prescribed by: LAY JAVIER on 03/27/212018 Hyoscyamine Sulfate (Levsin-Sl) 0.125 Mg Tab.subl, 0.25 MG SL Q4H Prescribed by: LAY JAVIER on 03/27/212018 Omeprazole (Prilosec 20 Mg) 20 Mg Capsule.dr, 20 MG PO DAILY, (Reported) Entered as Reported by: RENNY BROCK on 04/13/12 0946 Ondansetron (Ondansetron Odt) 4 Mg Tab.rapdis, 4 MG PO Q4H Prescribed by: LAY JAVIER on 03/27/212019 Vitamin B Complex & Vit C No.4 (Super B Complex) 150 Mg Tablet, 150 MG PO DAILY, (Reported) Entered as Reported by: FAYE MARINO on 03/12/16 0918 Past Uanwfxe-Mitjov-Hdyflu Hx Immunizations Up To Date First/Initial COVID19 Vaccinat: 2020 Second COVID19 Vaccination Alexis: 2020 Third COVID19 Vaccination Date: 2020 Seasonal Allergies Seasonal Allergies: Yes Past Medical History Surgery/Hospitalization HX: 02/2016--COLONOSCOPY/POLYPECTOMY 03/2014--EGD/GASTRIC POLYPS; X 2; BILATERAL CATARACT SURGERY; LEFT KNEE REPLACEMENT PMH: PARKINSONS Surgeries: Yes (CATARACTS BILAT, LEFT KNEE REPLACEMENT) Section, Eye Surgery, Joint Replacement, Orthopedic Respiratory: No Cardiac: Yes Hypertension Neurological: Yes Parkinson's Disease Reproductive Disorders: No Female 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 Sexually Transmitted Disease: No HIV/AIDS: No Genitourinary: Yes UTI-Chronic Gastrointestinal: Yes Gastroesophageal Reflux Musculoskeletal: Yes (LEFT KNEE REPLACEMENT) Degenerate Disk Disease, Arthritis, Chronic Back Pain Endocrine: No HEENT: Yes Cataract Loss of Vision: Bilateral Hearing Impairment: Denies Cancer: No Psychosocial: No Integumentary: No Blood Disorders: No Adverse Reaction/Blood Tranf: No (HAS HAD BLOOD WITH NO REACTION) Physical Exam Vital Signs Vital Signs - First Documented 02/01/23 02/01/23 21:45 22:16 Temp 37.6 Pulse 81 Resp 18 B/P (MAP) 148/84 (105) Pulse Ox 96 O2 Delivery Nasal Cannula O2 Flow Rate 2.00 Capillary Refill : Less Than 3 Seconds Height, Weight, BMI Height: 5'2.00" Weight: 165lbs. 0.0oz. 74.434260te; 30.00 BMI Method:Stated Progress/Results/Core Measures Results/Orders Lab Results Laboratory Tests Test 02/01/23 22:08 Range/Units White Blood Count 5.8 4.3-11.0 10^3/uL Red Blood Count 4.57 3.80-5.11 10^6/uL Hemoglobin 13.5 11.5-16.0 g/dL Hematocrit 40 35-52 % Mean Corpuscular Volume 87 80-99 fL Mean Corpuscular Hemoglobin 30 25-34 pg Mean Corpuscular Hemoglobin Concent 34 32-36 g/dL Red Cell Distribution Width 13.9 10.0-14.5 % Platelet Count 235 130-400 10^3/uL Mean Platelet Volume 10.5 9.0-12.2 fL Immature Granulocyte % (Auto) 1 % Neutrophils (%) (Auto) 75 42-75 % Lymphocytes (%) (Auto) 10 L 12-44 % Monocytes (%) (Auto) 11 0-12 % Eosinophils (%) (Auto) 2 0-10 % Basophils (%) (Auto) 0 0-10 % Neutrophils # (Auto) 4.3 1.8-7.8 10^3/uL Lymphocytes # (Auto) 0.6 L 1.0-4.0 10^3/uL Monocytes # (Auto) 0.6 0.0-1.0 10^3/uL Eosinophils # (Auto) 0.1 0.0-0.3 10^3/uL Basophils # (Auto) 0.0 0.0-0.1 10^3/uL Immature Granulocyte # (Auto) 0.0 0.0-0.1 10^3/uL Prothrombin Time 12.6 12.2-14.7 SEC INR Comment 0.9 0.8-1.4 Activated Partial Thromboplast Time 30 24-35 SEC D-Dimer 0.50 H 0.00-0.49 UG/ML Sodium Level 139 135-145 MMOL/L Potassium Level 3.8 3.6-5.0 MMOL/L Chloride Level 105 98-107 MMOL/L Carbon Dioxide Level 24 21-32 MMOL/L Anion Gap 10 5-14 MMOL/L Blood Urea Nitrogen 18 7-18 MG/DL Creatinine 1.01 0.60-1.30 MG/DL Estimat Glomerular Filtration Rate 55 BUN/Creatinine Ratio 18 Glucose Level 93 70-105 MG/DL Calcium Level 10.2 H 8.5-10.1 MG/DL Corrected Calcium 9.9 8.5-10.1 MG/DL Magnesium Level 2.0 1.6-2.4 MG/DL Total Bilirubin 0.3 0.1-1.0 MG/DL Aspartate Amino Transf (AST/SGOT) 21 5-34 U/L Alanine Aminotransferase (ALT/SGPT) 7 0-55 U/L Alkaline Phosphatase 75 40-136 U/L Total Creatine Kinase 98 29-168 U/L Creatine Kinase MB 1.8 <6.6 NG/ML Myoglobin 45.2 10.0-92.0 NG/ML Troponin I < 0.028 <0.028 NG/ML B-Type Natriuretic Peptide 106.0 H <100.0 PG/ML Total Protein 6.8 6.4-8.2 GM/DL Albumin 4.4 3.2-4.5 GM/DL Amylase Level 94 25-125 U/L Lipase 66 8-78 U/L Influenza Type A (RT-PCR) Not Detected Not Detecte Influenza Type B (RT-PCR) Not Detected Not Detecte SARS-CoV-2 RNA (RT-PCR) Detected H Not Detecte My Orders Orders - LAY JAVIER DO Cbc With Automated Diff (02/01/23 22:00) Magnesium (02/01/23 22:00) Comprehensive Metabolic Panel (02/01/23 22:00) Myoglobin Serum (02/01/23 22:00) Protime With Inr (02/01/23 22:00) Partial Thromboplastin Time (02/01/23 22:00) O2 (02/01/23 22:00) Monitor-Rhythm Ecg Trace Only (02/01/23 22:00) Ed Iv/Invasive Line Start (02/01/23 22:00) Creatine Kinase (02/01/23 22:00) Creatine Kinase Mb (02/01/23 22:00) Lipase (02/01/23 22:00) Amylase (02/01/23 22:00) Bnp Johnny (02/01/23 22:00) Fibrin Degradation Products (02/01/23 22:00) Troponin I Johnny (02/01/23 22:00) Aspirin Chewable Tablet (Aspirin Chewabl (02/01/23 22:00) Covid 19 Inhouse Test (02/01/23 22:09) Influenza A And B By Pcr (02/01/23 22:09) Acetaminophen Tablet (Acetaminophen Ta (02/01/23 22:15) Chest 1 View, Ap/Pa Only (02/02/23 00:01) Ct Angio Chest W (R/O Pe) (02/02/23 00:01) Iohexol Injection (Omnipaque 350 Mg/Ml 1 (02/02/23 01:00) Received Contrast (Hold Metformin- Contr (02/02/23 01:00) Ns (Ivpb) 100 Ml (Sodium Chloride 0.9% 1 (02/02/23 01:00) Rx-Molnupiravir (Eua) (Rx-Molnupiravir ( (02/02/23 09:00) Medications Given in ED Current Medications Medications Dose Ordered Sig/Buddy Route Start Time Stop Time Status Last Admin Dose Admin Acetaminophen 1,000 mg ONCE ONCE PO 02/01/23 22:15 02/01/23 22:16 DC 02/01/23 22:48 1,000 MG Aspirin 324 mg ONCE ONCE PO 02/01/23 22:00 02/01/23 22:01 DC 02/01/23 22:48 324 MG Iohexol 100 ml ONCE ONCE IV 02/02/23 01:00 02/02/23 02:01 DC 02/02/23 00:59 64 ML Sodium Chloride 100 ml ONCE ONCE IV 02/02/23 01:00 02/02/23 02:01 DC 02/02/23 00:59 69 ML Vital Signs/I&O 02/01/23 02/01/23 21:45 22:16 Temp 37.6 Pulse 81 Resp 18 B/P (MAP) 148/84 (105) Pulse Ox 96 O2 Delivery Nasal Cannula O2 Flow Rate 2.00 Blood Pressure Mean: [address] CHEST ANGIOGRAM--PER RADIOLOGIST REPORT AT 0337 FINDINGS: No abnormal intraluminal filling defect is seen within the pulmonary arteries to the segmental division. Evaluation of the subsegmental branches is degraded by motion artifact. Thoracic aorta shows mild calcified atherosclerosis, but by NASCET criteria, there is no focal significant stenosis. There is no evidence of dissection nor aneurysm. Heart size is mildly enlarged. There is no large pericardial effusion. No pathologically enlarged or morphologically abnormal adenopathy is seen within the mediastinum, bita, nor axilla. Evaluation of the lung flores is degraded by motion artifact as well. There is a 1.5 x 0.9 cm nodular opacity within the medial margins of the right lower lobe (image 83, series 3). Otherwise, the lungs are clear. There is no large effusion or pneumothorax. Osseous structures show no acute abnormalities. No lytic or blastic osseous lesions are seen. Included portions of the upper abdomen show interval decrease in size of hepatic cyst. IMPRESSION: 1. No CTA evidence of pulmonary embolus. 2. Nodular density in the right lower lobe is identified, but is stable compared to 03/27/2021. Benign process is favored. 3. Mild cardiomegaly. Reviewed: Reviewed by Me Departure Impression Primary Impression: COVID-19 virus infection Disposition: HOME, SELF-CARE Condition: Improved Departure-Patient Inst. Decision time for Depature: 03:45 Referrals: TATIANNA RAZA MD (PCP/Family) Primary Care Physician Patient Instructions: COVID-19 (DC), Preventing the Spread of an Infectious Disease, Molnupiravir FDA Fact Sheet Add. Discharge Instructions: LOTS OF CLEAR LIQUIDS--WATER, BROTH, JELLO, GATORADE TYLENOL AND MOTRIN NEEDED FOR PAIN OR FEVER OVER THE COUNTER MEDICATIONS FOR COUGH AND CONGESTION TAKE THE ANTIVIRAL MEDICATION PRESCRIBED FOLLOW UP WITH YOUR DR IN 4-5 DAYS IF NO BETTER, RETURN TO ER IF WORSE All discharge instructions reviewed with patient and/or family. Voiced understanding. LAY JAVIER DO Feb 01, 2023 22:15
[2023-02-01 22:24] LABS: BASOPHILS % (AUTO) 0 % (0-10); EOSINOPHILS # (AUTO) 0.1 10^3/uL (0.0-0.3); EOSINOPHILS % (AUTO) 2 % (0-10); HEMATOCRIT 40 % (35-52); HEMOGLOBIN 13.5 g/dL (11.5-16.0); LYMPHOCYTES # (AUTO) 0.6 10^3/uL (1.0-4.0); LYMPHOCYTES % (AUTO) 10 % (12-44); MEAN CORPUSCULAR HEMOGLOBIN 30 pg (25-34); MEAN CORPUSCULAR HGB CONC 34 g/dL (32-36); MEAN CORPUSCULAR VOLUME 87 fL (80-99); MEAN PLATELET VOLUME 10.5 fL (9.0-12.2); MONOCYTES # (AUTO) 0.6 10^3/uL (0.0-1.0); MONOCYTES % (AUTO) 11 % (0-12); NEUTROPHILS # (AUTO) 4.3 10^3/uL (1.8-7.8); NEUTROPHILS % (AUTO) 75 % (42-75); PLATELET COUNT 235 10^3/uL (130-400); WHITE BLOOD COUNT 5.8 10^3/uL (4.3-11.0)
[2023-02-01 22:39] LABS: INR 0.9 (0.8-1.4); PROTHROMBIN TIME PATIENT 12.6 SEC (12.2-14.7)
[2023-02-01 22:42] LABS: FIBRIN DEGRADATION PRODUCTS 0.5 UG/ML (0.00-0.49)
[2023-02-01 23:11] LABS: ALANINE AMINOTRANSFERASE 7 U/L (0-55); ALBUMIN 4.4 GM/DL (3.2-4.5); ALKALINE PHOSPHATASE 75 U/L (40-136); AMYLASE 94 U/L (25-125); BILIRUBIN,TOTAL 0.3 MG/DL (0.1-1.0); BUN/CREATININE RATIO 18; CALCIUM 10.2 MG/DL (8.5-10.1); CARBON DIOXIDE 24 MMOL/L (21-32); CHLORIDE 105 MMOL/L (98-107); CREATINE KINASE 98 U/L (29-168); CREATININE SERUM 1.01 MG/DL (0.60-1.30); GFR ESTIMATED 55; GLUCOSE 93 MG/DL (70-105); LIPASE 66 U/L (8-78); POTASSIUM 3.8 MMOL/L (3.6-5.0); SODIUM 139 MMOL/L (135-145); TOTAL PROTEIN 6.8 GM/DL (6.4-8.2)
[2023-02-01 23:39] LABS: CREATINE KINASE MB 1.8 NG/ML (<6.6)
[2023-02-02] MEDS ORDERED: IOHEXOL 350 MG/ML 100 ML (OMNIPAQUE 350) VIAL IV ONE (01:00)
[2023-02-02] MEDS ORDERED: HOLD METFORMIN - RECEIVED CONTRAST 20 ML VIAL IV SCH (01:00)
[2023-02-02] MEDS ORDERED: NS 100 ML (IVPB) BAG IV ONE (01:00)
--- NOTE | 2023-02-02 03:25 | Diagnostic Imaging Report ---
Indication: Chest pain.: Positive patient COMPARISON: Chest radiograph from same day TECHNIQUE: Postcontrast CTA of the chest was performed. Contrast bolus was injected intravenously and timed for optimal opacification of the arterial structures. Multiplanar and 3-D reformats were also created and reviewed. Auto Exposure Controls were utilized during the CT exam to meet ALARA standards for radiation dose reduction. FINDINGS: No abnormal intraluminal filling defect is seen within the pulmonary arteries to the segmental division. Evaluation of the subsegmental branches is degraded by motion artifact. Thoracic aorta shows mild calcified atherosclerosis, but by NASCET criteria, there is no focal significant stenosis. There is no evidence of dissection nor aneurysm. Heart size is mildly enlarged. There is no large pericardial effusion. No pathologically enlarged or morphologically abnormal adenopathy is seen within the mediastinum, bita, nor axilla. Evaluation of the lung flores is degraded by motion artifact as well. There is a 1.5 x 0.9 cm nodular opacity within the medial margins of the right lower lobe (image 83, series 3). Otherwise, the lungs are clear. There is no large effusion or pneumothorax. Osseous structures show no acute abnormalities. No lytic or blastic osseous lesions are seen. Included portions of the upper abdomen show interval decrease in size of hepatic cyst. IMPRESSION: 1. No CTA evidence of pulmonary embolus. 2. Nodular density in the right lower lobe is identified, but is stable compared to 03/27/2021. Benign process is favored. 3. Mild cardiomegaly. Dictated by: Dictated on workstation # [id number]
[2023-02-02] MEDS ORDERED: RX-MOLNUPIRAVIR (EUA) 200 MG #40 CAPSULES PO ONE (03:53)
--- NOTE | 2023-02-02 07:36 | Diagnostic Imaging Report ---
CLINICAL INDICATION: Patient with chest pain. EXAM: Portable chest x-ray upright view. COMPARISON: Chest x-ray dated 03/27/2021. FINDINGS: Lungs/pleura: There is interval development of mild bibasilar atelectasis. There is no pneumothorax. There is no pleural effusion. Mediastinum: Unremarkable. Pulmonary vasculature: Unremarkable. Heart: Stable cardiomegaly. Bones/extrathoracic soft tissue: There are hypertrophic spurs involving the thoracic spine. IMPRESSION: 1: There is interval development of mild bibasilar atelectasis. Otherwise, the remainder of this exam is stable. 2: Stable mild cardiomegaly with no significant pulmonary vascular congestion. Dictated by: Dictated on workstation # [id number]
--- NOTE | 2023-02-02 08:37 | Diagnostic Imaging Report ---
CLINICAL INDICATION: Patient with chest pain. EXAM: Portable chest x-ray upright view. COMPARISON: Chest x-ray dated 02/01/2023. FINDINGS: Lungs/pleura: There is slight improved aeration of both lung bases. Lungs are now clear. There is no pneumothorax. There is no pleural effusion. Mediastinum: Unremarkable. Pulmonary vasculature: Unremarkable. Heart: Stable mild cardiomegaly. Bones/extrathoracic soft tissue: There are degenerative spurs involving the thoracic spine. IMPRESSION: There is slight improved aeration of both lung bases. Lungs are now clear. Dictated by: Dictated on workstation # [id number]
[2023-02-02] MEDS ORDERED: RX-MOLNUPIRAVIR (EUA) 200 MG #40 CAPSULES PO SCH (09:00)
== END 2023-02-02 04:02 | disposition home or self-care (01) ==
LOC: EDUNIT# 21:41 → ER 21:42
DX: U07.1 COVID-19 (principal); R07.89 Other chest pain; R51.9 Headache, unspecified
CPT/HCPCS: 36415; 71045; 71275; 80053; 82150; 82550; 82553; 83690; 83735; 83874; 83880; 84484; 85025; 85379; 85610; 85730; 87636; 93005; 93041

== ENCOUNTER 2023-04-11 16:53 | Emergency (ER) | payer MEDICARE ==
[~2023-04-11] VITALS: Ht 152 cm; Wt 68.0 kg
--- NOTE | 2023-04-11 17:09 | ED General ---
General Stated Complaint: SOB, GENERALIZED PAIN, HIGH BP Source of Information: Patient (LAY JAVIER DO) History of Present Illness Date Seen by Provider: Apr 11, 2023 Time Seen by Provider: 16:55 Initial Comments PT ARRIVES VIA POV FROM HOME WITH FEMALE FRIEND. PT LIVES AT HOME ALONE. C/O SHORTNESS OF BREATH THAT BEGAN THIS AFTERNOON SOME TIME--FEELS LIKE SHE JUST NEEDS TO TAKE A DEEP BREATH STATES HER BLOOD PRESSURE WAS ELEVATED THIS AFTERNOON 172/71 C/O LEFT THIGH PAIN X 2 WEEKS--RATES PAIN 9/10 STATES SHE FELT LIKE SHE HAD AN IRREGULAR HEART BEAT THIS AFTERNOON NO CHEST PAIN NO DIZZINESS NO SYNCOPE NO FEVER, NO SWEATS, NO CHILLS NO SWELLING IN LEGS/FEET OR PAIN IN CALVES NO NAUSEA/VOMITING NO COUGH OR RECENT ILLNESS PT HAS HISTORY OF PARKINSON'S SHE HAS HAD ATRIAL FIBRILLATION IN THE PAST, AND HAS HAD AN ABLATION ( BY DR. GUTIERREZ) SHE IS NOT ON ASPIRIN OR BLOOD THINNERS OR MEDICATION FOR ATRIAL FIBRILLATION. SHE HAS NOT SEEN HER QUALITY INSPECTOR IN OVER A YEAR. SHE HAS HAS HAD COVID VACCINE X 3 PT HAD COVID 02/01/23. TX WITH MOLNUPIRAVIR NO FLU VACCINE THIS SEASON RECENTLY HAD A ROUTINE APPOINTMENT WITH DR. RAZA--IN THE LAST WEEK OR TWO. NO MEDICATION CHANGES PCP: DR. RAZA QUALITY INSPECTOR: DR. WHEELER AT [facility] (LAY JAVIER ) Allergies and Home Medications Allergies Coded Allergies: No Known Drug Allergies (Unverified , 03/10/16) Patient Home Medication List Home Medication List Reviewed: Yes (KATHERINE JADE MD) Cetirizine Hcl (Zyrtec) 10 Mg Capsule, 10 MG PO, (Reported) Entered as Reported by: RENNY BROCK on 04/13/12 0950 Citalopram Hydrobromide (Citalopram HBr) 20 Mg Tablet, 20 MG PO DAILY, (Reported) Entered as Reported by: FAYE MARINO on 03/12/16 0918 Hydrocodone/Acetaminophen (Hydrocodone-Acetamin 5-325 mg) 1 Each Tablet, 0.5-1 EACH PO Q4-6 HOURS PRN for PAIN Prescribed by: LAY JAVIER on 03/27/212018 Hyoscyamine Sulfate (Levsin-Sl) 0.125 Mg Tab.subl, 0.25 MG SL Q4H Prescribed by: LAY JAVIER on 03/27/212018 Omeprazole (Prilosec 20 Mg) 20 Mg Capsule.dr, 20 MG PO DAILY, (Reported) Entered as Reported by: RENNY BROCK on 04/13/12 0946 Ondansetron (Ondansetron Odt) 4 Mg Tab.rapdis, 4 MG PO Q4H Prescribed by: LAY JAVIER on 03/27/212019 Vitamin B Complex & Vit C No.4 (Super B Complex) 150 Mg Tablet, 150 MG PO DAILY, (Reported) Entered as Reported by: FAYE MARINO on 03/12/16 0918 Review of Systems Review of Systems Constitutional: no symptoms reported EENTM: no symptoms reported Respiratory: see HPI; No cough; short of breath Cardiovascular: see HPI; No chest pain, No edema; palpitations; No syncope Gastrointestinal: no symptoms reported Genitourinary: no symptoms reported Musculoskeletal: see HPI Skin: no symptoms reported Psychiatric/Neurological: No Symptoms Reported Hematologic/Lymphatic: No Symptoms Reported Immunological/Allergic: no symptoms reported (LAY JAVIER DO) Past Keuvtzh-Cshzug-Xkkilm Hx Patient Social History Tobacco Use?: No Substance use?: No Alcohol Use?: No (LAY JAVIER DO) Immunizations Up To Date First/Initial COVID19 Vaccinat: 2020 Second COVID19 Vaccination Alexis: 2020 Third COVID19 Vaccination Date: 2020 (LAY JAVIER DO) Seasonal Allergies Seasonal Allergies: Yes (LAY JAVIER DO) Past Medical History Surgery/Hospitalization HX: 02/2016--COLONOSCOPY/POLYPECTOMY 03/2014--EGD/GASTRIC POLYPS; X 2; BILATERAL CATARACT SURGERY; LEFT KNEE REPLACEMENT; CARDIAC ABLATIN PMH: PARKINSONS Surgeries: Yes (CATARACTS BILAT, LEFT KNEE REPLACEMENT) Section, Eye Surgery, Joint Replacement, Orthopedic Respiratory: No Cardiac: Yes (S/P CARDIAC ABLATION) Atrial Fibrillation, High Cholesterol, Hypertension, Irregular Heartbeat, Syncope Neurological: Yes Parkinson's Disease Reproductive Disorders: No Female Reproductive Disorders: Denies 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 Sexually Transmitted Disease: No HIV/AIDS: No Genitourinary: Yes UTI-Chronic Gastrointestinal: Yes Gastroesophageal Reflux Musculoskeletal: Yes (LEFT KNEE REPLACEMENT) Degenerate Disk Disease, Arthritis, Chronic Back Pain Endocrine: No HEENT: Yes Cataract Loss of Vision: Bilateral Hearing Impairment: Denies Cancer: No Psychosocial: No Integumentary: No Blood Disorders: No Adverse Reaction/Blood Tranf: No (HAS HAD BLOOD WITH NO REACTION) (LAY JAVIER ) Physical Exam Vital Signs Vital Signs - First Documented 04/11/23 16:56 Temp 37.0 Pulse 95 Resp 20 B/P (MAP) 166/100 (122) Pulse Ox 98 O2 Delivery Room Air (KATHERINE JADE MD) Vital Signs Capillary Refill : (LAY JAVIER ) Height, Weight, BMI Height: 5'2.00" Weight: 165lbs. 0.0oz. 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 WELL CONSTANT MOVEMENTS OF LEGS AND FEET AND HANDS/ARMS. ) Skin: Normal Color, Warm/Dry (LAY JAVIER ) Progress/Results/Core Measures Suspected Sepsis SIRS Temperature: Pulse: Respiratory Rate: Laboratory Tests 04/11/23 17:05: White Blood Count 10.7 Blood Pressure / Mean: Laboratory Tests 04/11/23 17:05: Creatinine 1.18, INR Comment 0.9, Platelet Count 272, Total Bilirubin 0.5 (LAY JAVIER ) Results/Orders Lab Results Laboratory Tests Test 04/11/23 17:05 04/11/23 18:05 04/11/23 19:26 Range/Units White Blood Count 10.7 4.3-11.0 10^3/uL Red Blood Count 4.69 3.80-5.11 10^6/uL Hemoglobin 13.6 11.5-16.0 g/dL Hematocrit 42 35-52 % Mean Corpuscular Volume 89 80-99 fL Mean Corpuscular Hemoglobin 29 25-34 pg Mean Corpuscular Hemoglobin Concent 33 32-36 g/dL Red Cell Distribution Width 14.0 10.0-14.5 % Platelet Count 272 130-400 10^3/uL Mean Platelet Volume 9.2 9.0-12.2 fL Immature Granulocyte % (Auto) 1 % Neutrophils (%) (Auto) 75 42-75 % Lymphocytes (%) (Auto) 15 12-44 % Monocytes (%) (Auto) 8 0-12 % Eosinophils (%) (Auto) 2 0-10 % Basophils (%) (Auto) 0 0-10 % Neutrophils # (Auto) 8.0 H 1.8-7.8 10^3/uL Lymphocytes # (Auto) 1.6 1.0-4.0 10^3/uL Monocytes # (Auto) 0.8 0.0-1.0 10^3/uL Eosinophils # (Auto) 0.2 0.0-0.3 10^3/uL Basophils # (Auto) 0.0 0.0-0.1 10^3/uL Immature Granulocyte # (Auto) 0.1 0.0-0.1 10^3/uL Erythrocyte Sedimentation Rate 6 0-30 MM/HR Prothrombin Time 12.4 12.2-14.7 SEC INR Comment 0.9 0.8-1.4 Activated Partial Thromboplast Time 27 24-35 SEC D-Dimer 0.38 0.00-0.49 UG/ML Sodium Level 138 135-145 MMOL/L Potassium Level 4.0 3.6-5.0 MMOL/L Chloride Level 105 98-107 MMOL/L Carbon Dioxide Level 23 21-32 MMOL/L Anion Gap 10 5-14 MMOL/L Blood Urea Nitrogen 29 H 7-18 MG/DL Creatinine 1.18 0.60-1.30 MG/DL Estimat Glomerular Filtration Rate 46 BUN/Creatinine Ratio 25 Glucose Level 99 70-105 MG/DL Calcium Level 10.0 8.5-10.1 MG/DL Corrected Calcium 9.7 8.5-10.1 MG/DL Magnesium Level 2.1 1.6-2.4 MG/DL Total Bilirubin 0.5 0.1-1.0 MG/DL Aspartate Amino Transf (AST/SGOT) 16 5-34 U/L Alanine Aminotransferase (ALT/SGPT) < 6 0-55 U/L Alkaline Phosphatase 65 40-136 U/L Troponin I < 0.028 < 0.028 <0.028 NG/ML C-Reactive Protein High Sensitivity 0.08 0.00-0.50 MG/DL B-Type Natriuretic Peptide 27.3 <100.0 PG/ML Total Protein 7.1 6.4-8.2 GM/DL Albumin 4.4 3.2-4.5 GM/DL Influenza Type A (RT-PCR) Not Detected Not Detecte Influenza Type B (RT-PCR) Not Detected Not Detecte SARS-CoV-2 RNA (RT-PCR) Not Detected Not Detecte Urine Color YELLOW Urine Clarity CLEAR Urine pH 6.0 5-9 Urine Specific [place] 1.010 L 1.016-1.022 Urine Protein NEGATIVE NEGATIVE Urine Glucose (UA) NEGATIVE NEGATIVE Urine Ketones NEGATIVE NEGATIVE Urine Nitrite NEGATIVE NEGATIVE Urine Bilirubin NEGATIVE NEGATIVE Urine Urobilinogen 0.2 < = 1.0 MG/DL Urine Leukocyte Esterase NEGATIVE NEGATIVE Urine RBC (Auto) NEGATIVE NEGATIVE Urine RBC NONE /HPF Urine WBC NONE /HPF Urine Squamous Epithelial Cells NONE /HPF Urine Crystals NONE /LPF Urine Bacteria NEGATIVE /HPF Urine Casts NONE /LPF Urine Mucus NEGATIVE /LPF Urine Culture Indicated NO (KATHERINE JADE MD) My Orders Orders - KATHERINE JADE MD Ekg Tracing (04/11/23 19:30) Troponin I [place] (04/11/23 19:30) (KATHERINE JADE MD) Medications Given in ED Current Medications Medications Dose Ordered Sig/Buddy Route Start Time Stop Time Status Last Admin Dose Admin Ketorolac Tromethamine 30 mg ONCE ONCE IVP 04/11/23 18:00 04/11/23 18:01 DC 04/11/23 18:25 30 MG (KATHERINE JADE MD) Vital Signs/I&O 04/11/23 16:56 Temp 37.0 Pulse 95 Resp 20 B/P (MAP) 166/100 (122) Pulse Ox 98 O2 Delivery Room Air (KATHERINE JADE MD) Vital Signs/I&O Capillary Refill : (LAY JAVIER DO) Progress Note : Progress Note VITALS ON ARRIVAL: TEMP 37.0=98.6, HR 95, RR 20, BP 166/100--REPEAT BP'S SHORTLY AFTER THAT 120'S/70'S, O2 SAT 98% ON ROOM AIR GIVEN: -TORADOL FOR LEFT THIGH PAIN LABS: -CBC NORMAL -CMP NORMAL -MG NORMAL -TROPONIN NEGATIVE -BNP NORMAL -PT/PTT/INR NORMAL -D-DIMER NEGATIVE -COVID/FLU NEGATIVE -UA CLEAR EKG IS NORMAL CXR IS NORMAL 0600--CARE TURNED OVER TO DR. JADE. WILL OBSERVE IN ER AND DO REPEAT TROPONIN (LAY JAVIER DO) Progress Note : Time: 19:32 Progress Note Patient care assumed at shift change, repeat troponin and EKG pending. Patient seen and evaluated by me. Evaluation today includes history, brief physical exam, review of laboratory studies obtained, EKG and chest x-ray. Patient's vital signs have remained stable throughout her stay here in the emergency department currently normal sinus rhythm heart rate 85, blood pressure 130/73, 96% sats on room air and normal respiratory rate at 25. Labs reviewed, CBC, Chem-12, magnesium, serum troponin, ddimer, coags, BNP, urinalysis all within normal limits without any abnormalities. Chest x-ray single view no infiltrate or effusion, interpretation by radiology was reviewed by me. Initial EKG normal sinus rhythm with out ectopy, normal intervals and no ST segment change. Repeat EKG obtained at this time, rate of 81, identical to the one at presentation. Serum troponin repeat is pending. 1956 Patient repeat troponin continues to be neg. EKG good. Patient feels significantly better in the left thigh area where she had pain - even SOB is better. I recommended oTC diclofenac gel. She has follow up with Dr Hernandez ([facility]) in 2 weeks for the left hip and thigh. Return precautions provided in both verbal and written format. All questions are sought and answered. (KATHERINE JADE MD) ECG Initial ECG Impression Date: Apr 11, 2023 Initial ECG Impression Time: 17:05 Initial ECG Rate: 90 Initial ECG Rhythm: Normal Sinus Initial ECG Intervals: Normal Initial ECG Impression: Normal Initial ECG Comparisson: Unchanged Comment INTERPRETED BY ME (LAY JAVIRE DO) EKG : EKG Time: 19:27 Rate: 81 Rhythm: Normal Sinus Intervals: Normal ECG Comparisson: Unchanged ECG Impression: Normal (KATHERINE JADE MD) Diagnostic Imaging Comments CXR--PER RADIOLOGIST REPORT AT 1745 FINDINGS: The lung volumes are normal. No focal consolidation is seen. No large pleural effusion or pneumothorax is seen. The cardiomediastinal silhouette is normal in size and contour. No acute osseous abnormality is seen. There are degenerative changes in the shoulders. IMPRESSION: No acute pulmonary abnormality seen. Reviewed: Reviewed by Me (LAY JAVIER DO) Diagonstic Imaging: Xray Plain Films/CT/US/NM/MRI: chest (KATHERINE JADE MD) Departure Impression Primary Impression: Shortness of breath Disposition: HOME, SELF-CARE Condition: Improved Departure-Patient Inst. Decision time for Depature: 19:59 (KATHERINE JADE MD) Referrals: TATIANNA RAZA MD (PCP/Family) Primary Care Physician Patient Instructions: Shortness of Breath, Adult ED Add. Discharge Instructions: Keep your appointment with Dr Hernandez in 2 weeks. Some stretches you can do - while standing hold on to a chair and cross your left leg behind your right and then lean *AWAY* from the sore side (being careful to keep balance). Hold for 30 seconds. Laying on the unaffected side, bring your knees forward (bent) and then slowly open and close your knees (holding open 2-3 seconds) and then close. 3 sets of 10 repetitions. These are a couple of things that may provide relief. Over the counter DICLOFENAC Gel - apply twice a day for pain relief to the affected jeremy. Return to the Emergency Department for any new, concerning or emergent complaints. Copy Copies To 1: TATIANNA RAZA MD, LISA K DO Apr 11, 2023 17:08 KATHERINE JADE MD Apr 11, 2023 19:35
[2023-04-11 17:14] LABS: BASOPHILS % (AUTO) 0 % (0-10); EOSINOPHILS # (AUTO) 0.2 10^3/uL (0.0-0.3); EOSINOPHILS % (AUTO) 2 % (0-10); HEMATOCRIT 42 % (35-52); HEMOGLOBIN 13.6 g/dL (11.5-16.0); LYMPHOCYTES # (AUTO) 1.6 10^3/uL (1.0-4.0); LYMPHOCYTES % (AUTO) 15 % (12-44); MEAN CORPUSCULAR HEMOGLOBIN 29 pg (25-34); MEAN CORPUSCULAR HGB CONC 33 g/dL (32-36); MEAN CORPUSCULAR VOLUME 89 fL (80-99); MEAN PLATELET VOLUME 9.2 fL (9.0-12.2); MONOCYTES # (AUTO) 0.8 10^3/uL (0.0-1.0); MONOCYTES % (AUTO) 8 % (0-12); NEUTROPHILS % (AUTO) 75 % (42-75); PLATELET COUNT 272 10^3/uL (130-400); WHITE BLOOD COUNT 10.7 10^3/uL (4.3-11.0)
[2023-04-11 17:25] LABS: ALBUMIN 4.4 GM/DL (3.2-4.5); CHLORIDE 105 MMOL/L (98-107); SODIUM 138 MMOL/L (135-145)
[2023-04-11 17:28] LABS: GLUCOSE 99 MG/DL (70-105); TOTAL PROTEIN 7.1 GM/DL (6.4-8.2)
[2023-04-11 17:29] LABS: BILIRUBIN,TOTAL 0.5 MG/DL (0.1-1.0); CARBON DIOXIDE 23 MMOL/L (21-32)
[2023-04-11 17:31] LABS: ALKALINE PHOSPHATASE 65 U/L (40-136); CREATININE SERUM 1.18 MG/DL (0.60-1.30); GFR ESTIMATED 46
[2023-04-11 17:32] LABS: BUN/CREATININE RATIO 25; INR 0.9 (0.8-1.4); PROTHROMBIN TIME PATIENT 12.4 SEC (12.2-14.7)
[2023-04-11 17:34] LABS: ALANINE AMINOTRANSFERASE < 6 U/L (0-55); MAGNESIUM 2.1 MG/DL (1.6-2.4)
[2023-04-11 17:35] LABS: FIBRIN DEGRADATION PRODUCTS 0.38 UG/ML (0.00-0.49)
--- NOTE | 2023-04-11 17:35 | Diagnostic Imaging Report ---
PATIENT HISTORY: DYSPNEA. TECHNIQUE: Single frontal view of the chest. COMPARISON: 02/02/2023 FINDINGS: The lung volumes are normal. No focal consolidation is seen. No large pleural effusion or pneumothorax is seen. The cardiomediastinal silhouette is normal in size and contour. No acute osseous abnormality is seen. There are degenerative changes in the shoulders. IMPRESSION: No acute pulmonary abnormality seen. Dictated by: Dictated on workstation # [id number]
[2023-04-11 17:41] LABS: ERYTHROCYTE SEDIMENTATION RATE 6 MM/HR (0-30)
[2023-04-11] MEDS ORDERED: KETOROLAC INJ 30 MG/ML VIAL IVP ONE (18:00)
[2023-04-11 18:21] LABS: CLARITY,URINE CLEAR; COLOR,URINE YELLOW
[2023-04-11 18:23] LABS: BACTERIA,URINE NEGATIVE /HPF; BILIRUBIN,URINE NEGATIVE (NEGATIVE); GLUCOSE, URINE (UA) NEGATIVE (NEGATIVE); KETONES,URINE NEGATIVE (NEGATIVE); LEUKOCYTE ESTERASE ,URINE NEGATIVE (NEGATIVE); NITRITE,URINE NEGATIVE (NEGATIVE); PROTEIN,URINE NEGATIVE (NEGATIVE)
[2023-04-11 20:09] VITALS: BP 131/74
== END 2023-04-11 20:09 | disposition home or self-care (01) ==
LOC: EDUNIT# 16:53 → ER 16:54
DX: R06.02 Shortness of breath (principal); Z86.16 Personal history of COVID-19
CPT/HCPCS: 36415; 71045; 80053; 81000; 83735; 83880; 84484; 85025; 85379; 85610; 85652; 85730; 86141; 87636; 93005; 93041; 96374

== ENCOUNTER 2023-04-18 13:47 | Observation (INO) | payer MEDICARE ==
[~2023-04-18] VITALS: Ht 152.4 cm; Wt 68.0 kg
[2023-04-18] VITALS (12 sets, daily range): BP systolic 96–157; BP diastolic 43–86
[2023-04-18] MEDS ORDERED: ASPIRIN 81 MG CHEWABLE TABLET PO ONE (14:00)
[2023-04-18 14:05] LABS: BASOPHILS % (AUTO) 1 % (0-10); EOSINOPHILS # (AUTO) 0.2 10^3/uL (0.0-0.3); EOSINOPHILS % (AUTO) 2 % (0-10); HEMATOCRIT 42 % (35-52); HEMOGLOBIN 13.8 g/dL (11.5-16.0); LYMPHOCYTES # (AUTO) 1.3 10^3/uL (1.0-4.0); LYMPHOCYTES % (AUTO) 15 % (12-44); MEAN CORPUSCULAR HEMOGLOBIN 29 pg (25-34); MEAN CORPUSCULAR HGB CONC 33 g/dL (32-36); MEAN CORPUSCULAR VOLUME 89 fL (80-99); MEAN PLATELET VOLUME 9.1 fL (9.0-12.2); MONOCYTES # (AUTO) 0.9 10^3/uL (0.0-1.0); MONOCYTES % (AUTO) 10 % (0-12); NEUTROPHILS # (AUTO) 6.1 10^3/uL (1.8-7.8); NEUTROPHILS % (AUTO) 72 % (42-75); PLATELET COUNT 297 10^3/uL (130-400); WHITE BLOOD COUNT 8.6 10^3/uL (4.3-11.0)
[2023-04-18] MEDS ORDERED: NS IV 1000 ML 1,000 ML IV STA (14:05)
--- NOTE | 2023-04-18 14:05 | ED Cardiac General ---
History of Present Illness General Chief Complaint: Chest Pain Stated Complaint: SOB | RAPID PULSE | NAUSEA Nursing Triage Note: PT AMB TO [facility] 5 WITH CC OF SOA AND FATIGUE X 1 WEEK. PT SENT FROM DR MORGAN OFFICE. PT STATES BECAME DIAPHORECTIC AND NAUSEOUS WHEN SOA BEGAN. Source: patient Exam Limitations: no limitations History of Present Illness Date Seen by Provider: Apr 18, 2023 Time Seen by Provider: 14:06 Initial Comments Patient is a 82-year-old female with a history of Parkinson's, A-fib who presents to the ED for shortness of breath weakness and fatigue. Symptoms have been ongoing for the past week. Family at bedside states that she was seen here on the had a cardiac work-up which all came back unremarkable. Patient states since she has had continued shortness of breath which seems to occur with exertion. No specific chest pain. She feels like she has abnormal rhythm. According to family they saw Dr. Montemayor fabrication engineer at [facility] this past week and was placed on a heart monitor for 2 days. She has been experiencing left hip pain and went [facility] and had a Toradol injection and scheduled for an outpatient MRI. Left hip pain for the past 2 weeks. No new falls. According to family patient received tramadol by her primary care physician had a potential reaction such as tremoring from the medication which they did stop. They did follow-up with her Parkinson's physician and decrease her carbidopa to see if this is related to the shortness of breath. no Improvement According to family she may be dehydrated. Denies of any pain with urination frequent urination, cough, vomiting, headache, dizziness, unilateral weakness or sensory changes, abdominal pain, fever. She has experienced some diarrhea. Allergies and Home Medications Allergies Coded Allergies: No Known Drug Allergies (Unverified , 03/10/16) Patient Home Medication List Home Medication List Reviewed: Yes Acetaminophen (Tylenol Arthritis) 650 Mg Tablet.er, 650 MG PO Q6H PRN for PAIN, (Reported) Entered as Reported by: THEODORE PONCE on 04/18/231603 Last Action: New Order Carbidopa/Levodopa (Carbidopa-Levodopa 25-100 Tab) 25 Mg-100 Mg Tablet, 1 TAB PO 5XD, (Reported) Entered as Reported by: THEODORE PONCE on 04/18/231603 Last Action: New Order Cetirizine HCl (Zyrtec) 10 Mg Capsule, 10 MG PO DAILY, (Reported) Entered as Reported by: THEODORE PONCE on 04/18/231603 Last Action: New Order Cetirizine Hcl (Zyrtec) 10 Mg Capsule, 10 MG PO, (Reported) Entered as Reported by: RENNY BROCK on 04/13/12 0950 Cholecalciferol (Vitamin D3) (Vitamin D3) 250 Mcg (06495 Unit) Capsule, 250 MCG PO DAILY, (Reported) Entered as Reported by: THEODORE PONCE on 04/18/231603 Last Action: New Order Citalopram Hydrobromide (Citalopram HBr) 20 Mg Tablet, 20 MG PO DAILY, (Reported) Entered as Reported by: FAYE MARINO on 03/12/16 09 Fluticasone Propionate (Flonase Allergy Relief) 50 Mcg/Actuation [place].susp, 1 SPRAY NS DAILY, (Reported) Entered as Reported by: THEODORE PONCE on 04/18/231603 Last Action: New Order Hydrocodone/Acetaminophen (Hydrocodone-Acetamin 5-325 mg) 1 Each Tablet, 0.5-1 EACH PO Q4-6 HOURS PRN for PAIN Prescribed by: LAY JAVIER on 03/27/212018 Hyoscyamine Sulfate (Levsin-Sl) 0.125 Mg Tab.subl, 0.25 MG SL Q4H Prescribed by: LAY JAVIER on 03/27/212018 Losartan Potassium (Losartan Potassium) 50 Mg Tablet, 0.5 TAB PO BID, (Reported) Entered as Reported by: THEODORE PONCE on 04/18/231603 Last Action: New Order Magnesium Oxide (Magnesium) 250 Mg Tablet, 250 MG PO DAILY, (Reported) Entered as Reported by: THEODORE PONCE on 04/18/231603 Last Action: New Order Omeprazole (Prilosec 20 Mg) 20 Mg Capsule.dr, 20 MG PO DAILY, (Reported) Entered as Reported by: RENNY BROCK on 04/13/12 0946 Ondansetron (Ondansetron Odt) 4 Mg Tab.rapdis, 4 MG PO Q4H Prescribed by: LAY JAVIER on 03/27/212019 Pantoprazole Sodium (Pantoprazole Sodium) 20 Mg Tablet.dr, 1 TAB PO DAILY, (Reported) Entered as Reported by: THEODORE PONCE on 04/18/231603 Last Action: New Order Paroxetine HCl (Paroxetine HCl) 40 Mg Tablet, 0.5 TAB PO BID, (Reported) Entered as Reported by: THEODORE PONCE on 04/18/231603 Last Action: New Order Ropinirole HCl (Ropinirole HCl) 0.25 Mg Tablet, 1 TAB PO QID, (Reported) Entered as Reported by: THEODORE PONCE on 04/18/231603 Last Action: New Order Rosuvastatin Calcium (Rosuvastatin Calcium) 20 Mg Tablet, 20 MG PO DAILY, (Reported) Entered as Reported by: THEODORE PONCE on 04/18/231603 Last Action: New Order Vitamin B Complex & Vit C No.4 (Super B Complex) 150 Mg Tablet, 150 MG PO DAILY, (Reported) Entered as Reported by: FAYE MAIRNO on 03/12/16 0918 Review of Systems Review of Systems Constitutional: No chills, No diaphoresis; malaise, weakness EENTM: No Double Vision, No Eye Pain Respiratory: Denies Cough; Shortness of Air Cardiovascular: Denies Chest Pain Gastrointestinal: Denies Abdominal Pain, Denies Blood Streaked Stools, Denies N ausea, Denies Poor Appetite, Denies Vomiting Musculoskeletal: No back pain, No joint pain, No joint swelling, No muscle pain, No muscle stiffness Skin: No change in color, No change in hair/nails Psychiatric/Neurological: Denies Anxiety, Denies Depressed All Other Systems Reviewed Negative Unless Noted: Yes Past Kpwbcrz-Hpzxvd-Vcnowj Hx Patient Social History Tobacco Use?: No Substance use?: No Alcohol Use?: Yes Alcohol Frequency: Rarely Immunizations Up To Date First/Initial COVID19 Vaccinat: 2020 Second COVID19 Vaccination Alexis: 2020 Third COVID19 Vaccination Date: 2020 Seasonal Allergies Seasonal Allergies: Yes Past Medical History Surgery/Hospitalization HX: 02/2016--COLONOSCOPY/POLYPECTOMY 03/2014--EGD/GASTRIC POLYPS; X 2; BILATERAL CATARACT SURGERY; LEFT KNEE REPLACEMENT; CARDIAC ABLATIN PMH: PARKINSONS Surgeries: Yes (CATARACTS BILAT, LEFT KNEE REPLACEMENT) Section, Eye Surgery, Joint Replacement, Orthopedic Respiratory: No Cardiac: Yes (S/P CARDIAC ABLATION) Atrial Fibrillation, High Cholesterol, Hypertension, Irregular Heartbeat, Syncope Neurological: Yes Parkinson's Disease Reproductive Disorders: No Female Reproductive Disorders: Denies 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 Sexually Transmitted Disease: No HIV/AIDS: No Genitourinary: Yes UTI-Chronic Gastrointestinal: Yes Gastroesophageal Reflux Musculoskeletal: Yes (LEFT KNEE REPLACEMENT) Degenerate Disk Disease, Arthritis, Chronic Back Pain Endocrine: No HEENT: Yes Cataract Loss of Vision: Bilateral Hearing Impairment: Denies Cancer: No Psychosocial: No Integumentary: No Blood Disorders: No Adverse Reaction/Blood Tranf: No (HAS HAD BLOOD WITH NO REACTION) Physical Exam Vital Signs Vital Signs - First Documented 04/18/23 13:51 Temp 37.5 Pulse 106 Resp 20 B/P (MAP) 133/79 (97) Pulse Ox 98 O2 Delivery Room Air Capillary Refill : Less Than 3 Seconds Height, Weight, BMI Height: 5'2.00" Weight: 165lbs. 0.0oz. 74.534400sd; 29.00 BMI Method:Stated General Appearance: No Apparent Distress, WD/WN HEENT: PERRL/EOMI, TMs Normal, Normal ENT Inspection, Pharynx Normal Neck: Full Range of Motion, Normal Inspection, Non Tender, Supple Respiratory: Chest Non Tender, Lungs Clear, Normal Breath Sounds, No Accessory Muscle Use, No Respiratory Distress Cardiovascular: Regular Rate, Rhythm, No Edema, No Gallop, No JVD, No Murmur Gastrointestinal: Normal Bowel Sounds, No Organomegaly, No Pulsatile Mass Extremity: Normal Capillary Refill, Normal Inspection, Normal Range of Motion, Non Tender Neurologic/Psychiatric: Alert, Oriented x3, No Motor/Sensory Deficits, Normal Mood/Affect, state comptroller II-XII Norm as Tested Skin: Normal Color, Warm/Dry Progress/Results/Core Measures Results/Orders Lab Results Laboratory Tests Test 04/18/23 13:55 04/18/23 14:47 04/18/23 14:52 Range/Units White Blood Count 8.6 4.3-11.0 10^3/uL Red Blood Count 4.76 3.80-5.11 10^6/uL Hemoglobin 13.8 11.5-16.0 g/dL Hematocrit 42 35-52 % Mean Corpuscular Volume 89 80-99 fL Mean Corpuscular Hemoglobin 29 25-34 pg Mean Corpuscular Hemoglobin Concent 33 32-36 g/dL Red Cell Distribution Width 13.7 10.0-14.5 % Platelet Count 297 130-400 10^3/uL Mean Platelet Volume 9.1 9.0-12.2 fL Immature Granulocyte % (Auto) 1 % Neutrophils (%) (Auto) 72 42-75 % Lymphocytes (%) (Auto) 15 12-44 % Monocytes (%) (Auto) 10 0-12 % Eosinophils (%) (Auto) 2 0-10 % Basophils (%) (Auto) 1 0-10 % Neutrophils # (Auto) 6.1 1.8-7.8 10^3/uL Lymphocytes # (Auto) 1.3 1.0-4.0 10^3/uL Monocytes # (Auto) 0.9 0.0-1.0 10^3/uL Eosinophils # (Auto) 0.2 0.0-0.3 10^3/uL Basophils # (Auto) 0.0 0.0-0.1 10^3/uL Immature Granulocyte # (Auto) 0.1 0.0-0.1 10^3/uL Prothrombin Time 13.0 12.2-14.7 SEC INR Comment 1.0 0.8-1.4 Activated Partial Thromboplast Time 29 24-35 SEC Sodium Level 137 135-145 MMOL/L Potassium Level 3.8 3.6-5.0 MMOL/L Chloride Level 104 98-107 MMOL/L Carbon Dioxide Level 24 21-32 MMOL/L Anion Gap 9 5-14 MMOL/L Blood Urea Nitrogen 15 7-18 MG/DL Creatinine 1.03 0.60-1.30 MG/DL Estimat Glomerular Filtration Rate 54 BUN/Creatinine Ratio 15 Glucose Level 99 70-105 MG/DL Calcium Level 9.9 8.5-10.1 MG/DL Corrected Calcium 9.7 8.5-10.1 MG/DL Magnesium Level 2.0 1.6-2.4 MG/DL Total Bilirubin 0.6 0.1-1.0 MG/DL Aspartate Amino Transf (AST/SGOT) 15 5-34 U/L Alanine Aminotransferase (ALT/SGPT) < 6 0-55 U/L Alkaline Phosphatase 60 40-136 U/L Myoglobin 42.7 10.0-92.0 NG/ML Troponin I < 0.028 <0.028 NG/ML B-Type Natriuretic Peptide 35.2 <100.0 PG/ML Total Protein 7.1 6.4-8.2 GM/DL Albumin 4.2 3.2-4.5 GM/DL Lipase 34 8-78 U/L Thyroid Stimulating Hormone (TSH) 1.36 0.35-4.94 UIU/ML Influenza Type A (RT-PCR) Not Detected Not Detecte Influenza Type B (RT-PCR) Not Detected Not Detecte SARS-CoV-2 RNA (RT-PCR) Not Detected Not Detecte Urine Color YELLOW Urine Clarity CLEAR Urine pH 7.0 5-9 Urine Specific [place] 1.015 L 1.016-1.022 Urine Protein NEGATIVE NEGATIVE Urine Glucose (UA) NEGATIVE NEGATIVE Urine Ketones NEGATIVE NEGATIVE Urine Nitrite NEGATIVE NEGATIVE Urine Bilirubin NEGATIVE NEGATIVE Urine Urobilinogen 0.2 < = 1.0 MG/DL Urine Leukocyte Esterase NEGATIVE NEGATIVE Urine RBC (Auto) NEGATIVE NEGATIVE Urine RBC NONE /HPF Urine WBC RARE /HPF Urine Squamous Epithelial Cells NONE /HPF Urine Crystals NONE /LPF Urine Bacteria NEGATIVE /HPF Urine Casts NONE /LPF Urine Mucus NEGATIVE /LPF Urine Culture Indicated NO My Orders Orders - DHRUV NICOLE PA Ekg Tracing (04/18/23 13:52) Cbc And Automated Diff (04/18/23 13:54) Magnesium (04/18/23 13:54) Chest 1 View, Ap/Pa Only (04/18/23 13:54) Comprehensive Metabolic Panel (04/18/23 13:54) Myoglobin Serum (04/18/23 13:54) Protime With Inr (04/18/23 13:54) Partial Thromboplastin Time (04/18/23 13:54) O2 (04/18/23 13:54) Monitor-Rhythm Ecg Trace Only (04/18/23 13:54) Lipid Panel (04/19/23 06:00) Ed Iv/Invasive Line Start (04/18/23 13:54) Lipase (04/18/23 13:54) Bnp Johnny (04/18/23 13:54) Troponin I Johnny (04/18/23 13:54) Aspirin Chewable Tablet (Aspirin Chewabl (04/18/23 14:00) Ua Culture If Indicated (04/18/23 14:03) Covid 19 Inhouse Test (04/18/23 14:03) Influenza A And B By Pcr (04/18/23 14:03) Thyroid Stimulating Hormone (04/18/23 14:03) Ns Iv 1000 Ml (Ns Iv 1000 Ml) (04/18/23 14:05) Ketorolac Injection (Ketorolac Injection (04/18/23 14:30) Ed Admission (Communication) (04/18/23 15:32) Medications Given in ED Current Medications Medications Dose Ordered Sig/Buddy Route Start Time Stop Time Status Last Admin Dose Admin Aspirin 324 mg ONCE ONCE PO 04/18/23 14:00 04/18/23 14:01 DC 04/18/23 14:05 324 MG Ketorolac Tromethamine 30 mg ONCE ONCE IVP 04/18/23 14:30 04/18/23 14:31 DC 04/18/23 14:36 30 MG Vital Signs/I&O 04/18/23 04/18/23 04/18/23 13:51 15:22 15:30 Temp 37.5 Pulse 106 89 92 Resp 20 20 B/P (MAP) 133/79 (97) 159/87 151/78 (102) Pulse Ox 98 98 O2 Delivery Room Air Room Air Room Air Blood Pressure Mean: 97 Comment Sinus rhythm, 97 bpm, QRS duration 89 MS, QTc 397 MS. Departure Communication (PCP) Reviewed previous ER visits, H&P, lab testing. Patient was seen here April 11 with a full work-up. Patient's cardiac work-up was unremarkable with negative troponins. Has been continued feeling weak since with shortness of breath and some mild chest discomfort. History of A-fib. She is concern for abnormal rhythm at home. She is weak fatigue and also reports left hip pain. She did have a negative D-dimer with her last visit. She has followed up with her Parkinson's physician and had changes in medication as well as orthopedic regarding her left hip and her fabrication engineer Dr. Figueroa all this past week. She states she had a Holter monitor for 2 days. She does not have the results. Has not been wanting to eat or drink. No urinary symptoms, fever, chills or abdominal pain. She denies of any specific chest pain at this time. Generalized lab work with cardiac and TSH. COVID influenza were ordered as well which were negative. CBC, CMP was grossly unremarkable. Normal troponin and BNP. Chest x-ray negative for pneumonia, pneumothorax. Normal TSH. Lab work all reassuring. She did states they decreased her Carbidopa levodpa medication this past week. Family was Concern for potential reaction to tramadol prescribed by her primary care physician this past week as patient experienced tremoring. I did discuss patient with Dr. Mcdonough her primary care physician who thought admission for observation hydration. I did discuss patient with Dr. Howe who agreed to accept patient. Consulted cardiology Dr. Ponce who agreed to follow patient at this time. Impression Primary Impression: Weakness Disposition: ADMITTED INPATIENT Condition: Stable Admissions Decision to Admit Reason: Admit from ER (General) Decision to Admit/Date: Apr 18, 2023 Time/Decision to Admit Time: 15:07 Departure-Patient Inst. Referrals: TATIANNA MCDONOUGH MD (PCP/Family) Primary Care Physician DHRUV NICOLE Apr 18, 2023 14:05
[2023-04-18 14:14] LABS: ALBUMIN 4.2 GM/DL (3.2-4.5)
[2023-04-18 14:15] LABS: CHLORIDE 104 MMOL/L (98-107); POTASSIUM 3.8 MMOL/L (3.6-5.0); SODIUM 137 MMOL/L (135-145)
[2023-04-18 14:16] LABS: CALCIUM 9.9 MG/DL (8.5-10.1)
[2023-04-18 14:17] LABS: GLUCOSE 99 MG/DL (70-105); TOTAL PROTEIN 7.1 GM/DL (6.4-8.2)
[2023-04-18 14:18] LABS: CARBON DIOXIDE 24 MMOL/L (21-32)
[2023-04-18 14:19] LABS: BILIRUBIN,TOTAL 0.6 MG/DL (0.1-1.0)
[2023-04-18 14:21] LABS: ALKALINE PHOSPHATASE 60 U/L (40-136); CREATININE SERUM 1.03 MG/DL (0.60-1.30); GFR ESTIMATED 54
[2023-04-18 14:22] LABS: BUN/CREATININE RATIO 15
[2023-04-18 14:24] LABS: ALANINE AMINOTRANSFERASE < 6 U/L (0-55); LIPASE 34 U/L (8-78)
--- NOTE | 2023-04-18 14:28 | Diagnostic Imaging Report ---
INDICATION: Shortness of air and fatigue. TIME OF EXAM: 1:54 p.m. COMPARISON: Correlation is made with prior chest 04/11/2023. FINDINGS: The heart size is normal. The pulmonary vascularity is unremarkable. The lungs are clear. No infiltrate, effusion or pneumothorax is detected. IMPRESSION: No acute cardiopulmonary process is detected. Dictated by: Dictated on workstation # [id number]
[2023-04-18] MEDS ORDERED: KETOROLAC INJ 30 MG/ML VIAL IVP ONE (14:30)
--- NOTE | 2023-04-18 15:09 | History & Physical ---
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 Holter monitor placed last week and was to turn in today but couldn't get over to [place] to do that. Tellez spicion for PAF is noted. Dyskinesias noted recently which required titrating down the Sinemet per Dr Loyola. Source: patient, RN/MD Exam Limitations: no limitations Date Seen 04/18/23 Time Seen by a Provider: 18:00 Attending Physician Winnie Mcdonough MD PCP Admitting Physician: Attending Physician: Referring Physician Date of Admission Home Medications & Allergies Home Medications Reviewed patient Home Medication Reconciliation performed by pharmacy medication reconciliations computer support technician and/or nursing. Patients Allergies have been reviewed. Allergies Allergies Coded Allergies No Known Drug Allergies (Uuwbajreuk53/12/16) Past Pvfetkk-Bfptpu-Kngqfn Hx Past Med/Social Hx: Reviewed Nursing Past Med/Soc Hx, Reviewed and Corrections made Patient Social History Marrital Status: single Employed/Student: retired Alcohol Use: Denies Use Smoking Status: Never a Smoker Recent Hopitalizations: No Immunizations Up To Date Date of Pneumonia Vaccine: May 13, 2010 Date of Influenza Vaccine: Feb 25, 2016 Seasonal Allergies Seasonal Allergies: Yes Past Medical History Surgeries: Section, Eye Surgery, Joint Replacement, Orthopedic Cardiac: Atrial Fibrillation, High Cholesterol, Hypertension, Irregular Heartbeat, Syncope Neurological: Parkinson's Disease Reproductive: No Sexually Transmitted Disease: No HIV/AIDS: No Female Reproductive Disorders: Denies Menopausal Genitourinary: UTI-Chronic Gastrointestinal: Gastroesophageal Reflux Musculoskeletal: Degenerate Disk Disease, Arthritis, Chronic Back Pain HEENT: Cataract Loss of Vision: Bilateral Hearing Impairment: Denies History of Blood Disorders: No Adverse Reaction to Blood Pruitt: No (HAS HAD BLOOD WITH NO REACTION) Review of Systems Constitutional: see HPI, malaise, weakness EENTM: no symptoms reported Respiratory: no symptoms reported Cardiovascular: palpitations Gastrointestinal: no symptoms reported Genitourinary: no symptoms reported Musculoskeletal: no symptoms reported Skin: no symptoms reported Psychiatric/Neurological: No Symptoms Reported All Other Systems Reviewed Negative Unless Noted: Yes Physical Exam Physical Exam Vital Signs Vital Signs - First Documented 04/18/23 04/18/23 13:51 16:26 Temp 37.5 Pulse 106 Resp 20 B/P (MAP) 133/79 (97) Pulse Ox 98 O2 Delivery Room Air FiO2 98 Capillary Refill : Less Than 3 Seconds Height, Weight, BMI Height: 5'2.00" Weight: 165lbs. 0.0oz. 74.182330pg; 29.00 BMI Method:Stated General Appearance: No Apparent Distress, WD/WN, Chronically ill, Obese HEENT: PERRL/EOMI, Normal ENT Inspection, Pharynx Normal Neck: Full Range of Motion, Normal Inspection, Non Tender, Supple Respiratory: Chest Non Tender, Lungs Clear, Normal Breath Sounds, No Accessory Muscle Use, No Respiratory Distress Cardiovascular: Regular Rate, Rhythm, No Edema, No Gallop, No JVD, No Murmur Gastrointestinal: Normal Bowel Sounds, No Organomegaly, No Pulsatile Mass Extremity: Normal Capillary Refill, Normal Inspection, Normal Range of Motion, Non Tender Neurologic/Psychiatric: Alert, Oriented x3, lift mechanic II-XII Norm as Tested, Abnormal Gait, Depressed Affect, Motor Weakness, Other (tremor) Skin: Normal Color, Warm/Dry Results Results/Procedures Labs Laboratory Tests 04/18/23 13:55 Patient resulted labs reviewed. 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
[2023-04-18 15:10] LABS: CLARITY,URINE CLEAR; COLOR,URINE YELLOW; GLUCOSE, URINE (UA) NEGATIVE (NEGATIVE); KETONES,URINE NEGATIVE (NEGATIVE); PROTEIN,URINE NEGATIVE (NEGATIVE)
[2023-04-18 15:11] LABS: BACTERIA,URINE NEGATIVE /HPF; BILIRUBIN,URINE NEGATIVE (NEGATIVE); LEUKOCYTE ESTERASE ,URINE NEGATIVE (NEGATIVE); NITRITE,URINE NEGATIVE (NEGATIVE); WBC,URINE RARE /HPF
[2023-04-18] MEDS ORDERED: CHOL-6 PO (16:04)
[2023-04-18] MEDS ORDERED: MAGN250T13 PO (16:04)
[2023-04-18] MEDS ORDERED: LOSA50TA63 PO (16:04)
[2023-04-18] MEDS ORDERED: CETI10CA PO (16:04)
[2023-04-18] MEDS ORDERED: ROSU20TA73 PO (16:04)
[2023-04-18] MEDS ORDERED: PARO40TA3 PO (16:04)
[2023-04-18] MEDS ORDERED: ACET-2650 PO (16:04)
[2023-04-18] MEDS ORDERED: CARB1TAB32 PO (16:04)
[2023-04-18] MEDS ORDERED: FLUT9.9S NS (16:04)
[2023-04-18] MEDS ORDERED: PANT20TA18 PO (16:04)
[2023-04-18] MEDS ORDERED: ROPI0.2533 PO (16:04)
[2023-04-18] MEDS ORDERED: ONDANSETRON INJECTION 4 MG/2 ML (SDV) IV PRN (16:15)
[2023-04-18] MEDS ORDERED: ACETAMINOPHEN 325 MG TABLET PO PRN (16:15)
[2023-04-18] MEDS ORDERED: ONDANSETRON 4 MG ORAL DISSOLVE TABLET PO PRN (16:15)
[2023-04-18] MEDS ORDERED: MILK OF MAGNESIA 400 MG/5 ML 30 ML UDC PO PRN (16:15)
[2023-04-18] MEDS ORDERED: diphenhydrAMINE INJ 50 MG/ML VIAL IVP PRN (16:15)
[2023-04-18] MEDS ORDERED: ENOXAPARIN 40 MG/0.4 ML SYRINGE SC SCH (16:15)
[2023-04-18] MEDS ORDERED: LACTULOSE SYRUP 10GM/15ML 30ML UDC PO PRN (16:15)
[2023-04-18] MEDS ORDERED: diphenhydrAMINE 25 MG TABLET PO PRN (16:15)
[2023-04-18] MEDS ORDERED: ANTACID SUSPENSION 30 ML UDC PO PRN (16:15)
[2023-04-18] MEDS ORDERED: BISACODYL 10 MG SUPPOSITORY PR PRN (16:15)
[2023-04-18] MEDS ORDERED: CALCIUM CARBONATE 500 MG CHEW TABLET PO PRN (16:15)
[2023-04-18] MEDS ORDERED: MELATONIN 3 MG TABLET PO PRN (16:15)
[2023-04-18] MEDS ORDERED: RT-ALBUTEROL SULF 2.5 MG/3 ML PRE-MIX VIAL INH PRN (16:30)
[2023-04-18] MEDS: NS IV 1000 ML 1,000 ML IV SCH (17:03)
[2023-04-18] MEDS: HYDROmorphone INJECTION 2 MG/ML VIAL IV PRN ×2 (17:28→19:32)
[2023-04-18] MEDS: rOPINIRole 0.25 MG TABLET PO SCH (20:45)
[2023-04-18] MEDS: CARBIDOPA/LEVODOPA 25/100 TABLET PO SCH (20:45)
[2023-04-18] MEDS: SENNOSIDES 8.6 MG TABLET PO SCH (21:00)
[2023-04-18] MEDS: DOCUSATE SODIUM 100 MG CAPSULE PO SCH (21:00)
[2023-04-19] VITALS (8 sets, daily range): BP systolic 124–144; BP diastolic 62–88
[2023-04-19] MEDS: HYDROmorphone INJECTION 2 MG/ML VIAL IV PRN ×3 (00:08→09:44)
[2023-04-19] MEDS: NS IV 1000 ML 1,000 ML IV SCH (05:54)
[2023-04-19 06:25] LABS: BASOPHILS % (AUTO) 1 % (0-10); EOSINOPHILS # (AUTO) 0.2 10^3/uL (0.0-0.3); EOSINOPHILS % (AUTO) 4 % (0-10); HEMATOCRIT 38 % (35-52); LYMPHOCYTES # (AUTO) 1.1 10^3/uL (1.0-4.0); LYMPHOCYTES % (AUTO) 20 % (12-44); MEAN CORPUSCULAR HEMOGLOBIN 29 pg (25-34); MEAN CORPUSCULAR HGB CONC 32 g/dL (32-36); MEAN CORPUSCULAR VOLUME 91 fL (80-99); MEAN PLATELET VOLUME 9.3 fL (9.0-12.2); MONOCYTES # (AUTO) 0.5 10^3/uL (0.0-1.0); MONOCYTES % (AUTO) 10 % (0-12); NEUTROPHILS # (AUTO) 3.5 10^3/uL (1.8-7.8); NEUTROPHILS % (AUTO) 65 % (42-75); PLATELET COUNT 240 10^3/uL (130-400); WHITE BLOOD COUNT 5.3 10^3/uL (4.3-11.0)
[2023-04-19 06:45] LABS: ALBUMIN 3.5 GM/DL (3.2-4.5); POTASSIUM 4.1 MMOL/L (3.6-5.0)
[2023-04-19 06:46] LABS: CALCIUM 8.6 MG/DL (8.5-10.1)
[2023-04-19 06:47] LABS: TOTAL PROTEIN 5.7 GM/DL (6.4-8.2)
[2023-04-19 06:49] LABS: BILIRUBIN,TOTAL 0.4 MG/DL (0.1-1.0)
[2023-04-19 06:51] LABS: CREATININE SERUM 0.88 MG/DL (0.60-1.30)
[2023-04-19] MEDS: CARBIDOPA/LEVODOPA 25/100 TABLET PO SCH ×3 (07:05→12:32)
--- NOTE | 2023-04-19 08:19 | Progress Note ---
Subjective Date Seen by a Provider: Apr 19, 2023 Time Seen by a Provider: 11:00 Objective Exam Last Set of Vital Signs Vital Signs Date Time Temp Pulse Resp B/P (MAP) Pulse Ox O2 Delivery O2 Flow Rate FiO2 04/19/23 08:14 92 Room Air 04/19/23 08:00 36.2 88 21 144/85 (104) 04/18/23 16:26 98 Capillary Refill : Less Than 3 Seconds I&O Intake and Output 04/19/23 00:00 Intake Total 320 ml Balance 320 ml Intake Oral 320 ml # Voids 2 Daily Weight Change No Results Lab Laboratory Tests 04/18/23 13:55: White Blood Count 8.6, Red Blood Count 4.76, Hemoglobin 13.8, Hematocrit 42, Mean Corpuscular Volume 89, Mean Corpuscular Hemoglobin 29, Mean Corpuscular Hemoglobin Concent 33, Red Cell Distribution Width 13.7, Platelet Count 297, Mean Platelet Volume 9.1, Immature Granulocyte % (Auto) 1, Neutrophils (%) (Auto) 72, Lymphocytes (%) (Auto) 15, Monocytes (%) (Auto) 10, Eosinophils (%) (Auto) 2, Basophils (%) (Auto) 1, Neutrophils # (Auto) 6.1, Lymphocytes # (Auto) 1.3, Monocytes # (Auto) 0.9, Eosinophils # (Auto) 0.2, Basophils # (Auto) 0.0, Immature Granulocyte # (Auto) 0.1, Prothrombin Time 13.0, INR Comment 1.0, Activated Partial Thromboplast Time 29, Sodium Level 137, Potassium Level 3.8, Chloride Level 104, Carbon Dioxide Level 24, Anion Gap 9, Blood Urea Nitrogen 15, Creatinine 1.03, Estimat Glomerular Filtration Rate 54, BUN/Creatinine Ratio 15, Glucose Level 99, Calcium Level 9.9, Corrected Calcium 9.7, Magnesium Level 2.0, Total Bilirubin 0.6, Aspartate Amino Transf (AST/SGOT) 15, Alanine Aminotransferase (ALT/SGPT) < 6, Alkaline Phosphatase 60, Myoglobin 42.7, Troponin I < 0.028, B-Type Natriuretic Peptide 35.2, Total Protein 7.1, Albumin 4.2, Lipase 34, Thyroid Stimulating Hormone (TSH) 1.36 04/18/23 14:47: Influenza Type A (RT-PCR) Not Detected, Influenza Type B (RT-PCR) Not Detected, SARS-CoV-2 RNA (RT-PCR) Not Detected 04/18/23 14:52: Urine Color YELLOW, Urine Clarity CLEAR, Urine pH 7.0, Urine Specific [place] 1.015L, Urine Protein NEGATIVE, Urine Glucose (UA) NEGATIVE, Urine Ketones NEGATIVE, Urine Nitrite NEGATIVE, Urine Bilirubin NEGATIVE, Urine Urobilinogen 0.2, Urine Leukocyte Esterase NEGATIVE, Urine RBC (Auto) NEGATIVE, Urine RBC NONE, Urine WBC RARE, Urine Squamous Epithelial Cells NONE, Urine Crystals NONE, Urine Bacteria NEGATIVE, Urine Casts NONE, Urine Mucus NEGATIVE, Urine Culture Indicated NO 04/19/23 05:44: White Blood Count 5.3, Red Blood Count 4.15, Hemoglobin 12.0, Hematocrit 38, Mean Corpuscular Volume 91, Mean Corpuscular Hemoglobin 29, Mean Corpuscular Hemoglobin Concent 32, Red Cell Distribution Width 13.9, Platelet Count 240, Mean Platelet Volume 9.3, Immature Granulocyte % (Auto) 1, Neutrophils (%) (Auto) 65, Lymphocytes (%) (Auto) 20, Monocytes (%) (Auto) 10, Eosinophils (%) (Auto) 4, Basophils (%) (Auto) 1, Neutrophils # (Auto) 3.5, Lymphocytes # (Auto) 1.1, Monocytes # (Auto) 0.5, Eosinophils # (Auto) 0.2, Basophils # (Auto) 0.0, Immature Granulocyte # (Auto) 0.0, Sodium Level 140, Potassium Level 4.1, Chloride Level 110H, Carbon Dioxide Level 25, Anion Gap 5, Blood Urea Nitrogen 15, Creatinine 0.88, Estimat Glomerular Filtration Rate 65, BUN/Creatinine Ratio 17, Glucose Level 87, Calcium Level 8.6, Corrected Calcium 9.0, Total Bilirubin 0.4, Aspartate Amino Transf (AST/SGOT) 14, Alanine Aminotransferase (ALT/SGPT) 7, Alkaline Phosphatase 48, Total Protein 5.7L, Albumin 3.5, Triglycerides Level 75, Cholesterol Level 112, LDL Cholesterol Direct 40, VLDL Cholesterol 15, HDL C holesterol 51 MADELYN DAVIS DO Apr 19, 2023 08:19
[2023-04-19] MEDS: DOCUSATE SODIUM 100 MG CAPSULE PO SCH (09:09)
[2023-04-19] MEDS: rOPINIRole 0.25 MG TABLET PO SCH ×2 (09:09→12:32)
[2023-04-19] MEDS: SENNOSIDES 8.6 MG TABLET PO SCH (09:09)
--- NOTE | 2023-04-19 09:10 | Physical Therapy Evaluation ---
PT Evaluation-General Medical Diagnosis Admission Date Apr 18, 2023 at 15:39 Medical Diagnosis: weakness Onset Date: Apr 18, 2023 Therapy Diagnosis Therapy Diagnosis: debility Height/Weight Height (Feet): 5 Height (Inches): 2.00 Weight (Pounds): 165 Weight (Ounces): 0.0 Precautions Precautions/Isolations: Standard Precautions Referral Physician: Carley Reason for Referral: Evaluation/Treatment Medical History Pertinent Medical History: Atrial Fib, Parkinson's Current History ambulated to ER room with c/o SOA, fatigue x 1 week Reviewed History: Yes Social History Home: Single Level Current Living Status: Alone Entry Into Home: Stairs With Railing PT Steps Into Home: 2 Prior Prior Level of Function SCALE: Activities may be completed with or without assistive devices. 8-Mltapaeweb-eafoqwa completes the activity by him/herself with no assistance from a helper. 5-Set-up or Clean-up Assistance-helper sets up or cleans up; patient completes activity. [place] assists only prior to or following the activity. 4-Supervision or Touching Assistance-helper provides verbal cues and/or touching/steadying and/or contact guard assistance as patient completes activity. Assistance may be provided throughout the activity or intermittently. 3-Partial/Moderate Assistance-helper does LESS THAN HALF the effort. [place] lifts, holds or supports trunk or limbs, but provides less than half the effort. 2-Substantial/Maximal Assistance-helper does MORE THAN HALF the effort. [place] lifts or holds trunk or limbs and provides more than half the effort. 0-Qddixdeiq-nnuwju does ALL the effort. Patient does none of the effort to complete the activity. Or, the assistance of 2 or more helpers is required for the patient to complete the activity. If activity was not attempted, code reason: 7-Patient Refused. 9-Not Applicable-not attempted and the patient did not perform the activity be fore the current illness, exacerbation or injury. 10-Not Attempted due to Environmental Limitations-(lack of equipment, weather restraints, etc.). 88-Not Attempted due to Medical Conditions or Safety Concerns. Bed Mobility: 6 Transfers (B,C,W/C): 6 Gait: 6 Stairs: 6 Indoor Mobility (Ambulation): Independent Stairs: Independent Prior Devices Use: None PT Evaluation-Current Subjective Patient agrees to therapy. Objective Patient Orientation: Normal For Age ROM/Strength ROM Lower Extremities bilateral LE WFL Strength Lower Extremities 3+/5 grossly bilateral LE all planes Integumentary/Posture Bowel Incontinence: No Bladder Incontinence: No Posture WFL Neuromuscular (Tone, Coordination, Reflexes) grossly intact/mild tremors UE's Sensory Vision: Functional Hearing: Hearing Aid/Aides Transfers Roll Left to Right (QC): 6 Sit to Lying (QC): 6 Lying to Sitting/Side of Bed(Q: 6 Sit to Stand (QC): 4 Chair/Pab-wf-Zkicr Xfer(QC): 4 Toilet Transfer (QC): 4 Gait Mode of Locomotion: Walk Anticipated Mode of Locomotion: Walk Walk 10 feet (QC): 4 Walk 50 ft with 2 Turns(QC): 4 Walk 150 ft (QC): 4 Distance: 250' Gait Assistive Device: FWW Comments/Gait Description safe and functional with no deviation Balance Sitting Static: Normal Sitting Dynamic: Normal Standing Static: Normal Standing Dynamic: Normal Assessment/Needs Patient will be seen short term by skilled PT to address functional strength and mobility to ensure safe return to home at maximum LOF. Family present. 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 PT Wire Stripping Machine Operator Goals Time Frame: Apr 30, 2023 Roll Left & Right (QC): 6 Sit to Lying (QC): 6 Lying-Sitting on Side/Bed(QC): 6 Sit to Stand (QC): 6 Chair/Owr-nj-Qcitr Xfer(QC): 6 Toilet Transfer (QC): 6 Walk 10 feet (QC): 6 Walk 50ft with 2 Turns (QC): 6 Walk 150 ft (QC): 6 PT Plan Treatment/Plan Treatment Plan: Continue Plan of Care Treatment Plan: Education, Functional Activity Arabella, Functional Strength, Gait, Safety, Therapeutic Exercise, Transfers Treatment Duration: Apr 30, 2023 Frequency: 6 times per week Estimated Hrs Per Day: .25 hour per day Patient and/or Family Agrees t: Yes Time Time In: 800 Time Out: 814 DATE: Apr 19, 2023 Total Billed Treatment Time: 14 Total Billed Treatment 1 visit Mod 14 min RICKIE LIMON PT Apr 19, 2023 09:10
--- NOTE | 2023-04-19 09:23 | Occupational Therapy Eval ---
OT Evaluation-General/PLF Medical Diagnosis Admission Date Apr 18, 2023 at 15:39 Medical Diagnosis: weakness Onset Date: Apr 18, 2023 Therapy Diagnosis Therapy Diagnosis: weakness, PD tremors, LLE pain Height/Weight Height (Feet): 5 Height (Inches): 2.00 Weight (Pounds): 165 Weight (Ounces): 0.0 Precautions Precautions/Isolations: Standard Precautions Weight Bear Status Weight Bearing Restriction: Full Weight Bearing Referral Physician: Carley Referral Reason: Evaluation/Treatment Medical History Pertinent Medical History: Atrial Fib, Parkinson's Reviewed History: Yes Social History Home: Single Level Current Living Status: Alone Entry Into Home: Stairs With Railing Steps Into Home: 2 Steps Inside Home: 1 ADL-Prior Level of Function SCALE: Activities may be completed with or without assistive devices. 6-Vpyuxnjfzz-hychtby completes the activity by him/herself with no assistance from a helper. 5-Set-up or Clean-up Assistance-helper sets up or cleans up; patient completes activity. [place] assists only prior to or following the activity. 4-Supervision or Touching Assistance-helper provides verbal cues and/or touching/steadying and/or contact guard assistance as patient completes activity. Assistance may be provided throughout the activity or intermittently. 3-Partial/Moderate Assistance-helper does LESS THAN HALF the effort. [place] lifts, holds or supports trunk or limbs, but provides less than half the effort. 2-Substantial/Maximal Assistance-helper does MORE THAN HALF the effort. [place] lifts or holds trunk or limbs and provides more than half the effort. 2-Ipgdinjae-qthvhe does ALL the effort. Patient does none of the effort to complete the activity. Or, the assistance of 2 or more helpers is required for the patient to complete the activity. If activity was not attempted, code reason: 7-Patient Refused. 9-Not Applicable-not attempted and the patient did not perform the activity before the current illness, exacerbation or injury. 10-Not Attempted due to Environmental Limitations-(lack of equipment, weather restraints, etc.). 88-Not Attempted due to Medical Conditions or Safety Concerns. ADL PLOF Comments Home set up with multiple ADA and DME Self Care: Independent Functional Cognition: Independent Family performs all IADLs, medication set up, transportation and financials Drive Self: No OT Current Status Subjective agreeable to participate Pain Numeric Pain Scale: 5-Moderate Pain (LLE hip/knee/back) Mental Status/Objective Patient Orientation: Person, Place, Time, Situation Current Glasses/Contacts: Yes Upper Extremity ROM BUE ROM WFLS Upper Extremity Coordination PD tremors Upper Extremity Strength 4/5 grossly limited standing tolerance, weight shift to RLE only to relieve pain to LLE while grooming at sink ADL-Treatment ADL-Current standing Grooming, shampoo cap, PTS sponge bathe on toilet Eating (QC): 7 Oral Hygiene (QC): 5 Shower/Bathe Self (QC): 4 (sponge UB front and harley area) Upper Body Dressing (QC): 4 Lower Body Dressing (QC): 5 On/Off Footwear (QC): 5 Toileting Hygiene (QC): 5 Patient does not shower w/o family present at home Other Treatments Referral for Parkinson's Connect for resources Education OT Patient Education: Exercise program, Instructions to caregiver, Modified ADL techniques, Progress toward Goal/Update tx plan, Purpose of tx/functional activities, Reviewed precautions, Rehab process, Transfer techniques Teaching Recipient: Patient, Family Teaching Methods: Demonstration, Discussion Response to Teaching: Return Demonstration OT Alf Goals Manufacturing Management Associate Goals 1=Demonstrate adherence to instructed precautions during ADL tasks. 2=Patient will verbalize/demonstrate understanding of assistive devices/modifications for ADL. 3=Patient will improve strength/tolerance for activity to enable patient to perform ADL's. OT Education/Plan Problem List/Assessment Assessment: No Skilled OT Needs ID'd Discharge Recommendations Plan/Recommendations: Discontinue OT Therapy Discharge Recommendati: Home & Family Treatment Plan/Plan of Care Treatment,Training & Education: Yes Patient would benefit from OT for education, treatment and training to promote independence in ADL's, mobility, safety and/or upper extremity function for ADL's. Plan of Care: OTHER (EVAL ONLY) Treatment Duration: Apr 19, 2023 Frequency: 1 time per week Estimated Hrs Per Day: .25 hour per day Agreement: Yes Rehab Potential: Fair Time Start Time: 08:00 Stop Time: 08:25 DATE: Apr 19, 2023 Total Time Billed (hr/min): 25 Billed Treatment Time EVM, ADL 25 min BRYON AGUDELO OT Apr 19, 2023 09:23
[2023-04-19] MEDS ORDERED: HYDROcodone/ACETAMINOPHEN 5 MG/325 MG TABLET PO PRN (11:30)
[2023-04-19] MEDS ORDERED: MULT-1054 PO (11:55)
[2023-04-19] MEDS ORDERED: MV-M1TAB57 PO (11:55)
[2023-04-19] MEDS ORDERED: ACET-2650 PO (11:55)
[2023-04-19] MEDS ORDERED: FLUT9.9S NSEACH (11:55)
[2023-04-19] MEDS ORDERED: CETI10TA17 PO (11:55)
[2023-04-19] MEDS ORDERED: MAGN250T31 PO (11:55)
[2023-04-19] MEDS ORDERED: CHOL500050 PO (12:02)
[2023-04-19] MEDS ORDERED: ACHD5005 PO (12:35)
--- NOTE | 2023-04-19 12:37 | Discharge Summary ---
Diagnosis/Chief Complaint Date of Admission Apr 18, 2023 at 15:39 Date of Discharge Discharge Date: Apr 19, 2023 Discharge Diagnosis Palpitations suspected PAF previous ablation in the past Severe Parkinson's Weakness Debility Left hip and lower back pain sent for consultation next week with MRI Discharge Summary Discharge Physical Examination Allergies: Coded Allergies: No Known Drug Allergies (Unverified , 03/10/16) Vitals & I&Os Vital Signs Date Time Temp Pulse Resp B/P (MAP) Pulse Ox O2 Delivery O2 Flow Rate FiO2 04/19/23 13:21 04/19/23 12:16 87 04/19/23 12:00 36.5 20 93 Room Air 04/18/23 16:26 98 General Appearance: Alert, Oriented X3, Cooperative Respiratory: Clear to Auscultation Cardiovascular: Regular Rate Psych/Mental Status: Mental Status NL Hospital Course Was the Problem List Reviewed?: Yes Patient had an uneventful hospital course after placed in observation due to weakness and severe left hip and lower back pain. Palpitations were noted and did not occur during the 48-hour Holter monitor Dr. Akbar had ordered last week. Patient maintained on telemetry and cardiology consulted without any atrial fibrillation noted. External monitoring engineer placed at discharge. PT walked her and had no concerns about her ability to remain at home. She has an appointment for left hip pain and lower back pain on Tuesday with MRI. Labs (last 24 hrs) Laboratory Tests 04/18/23 13:55: White Blood Count 8.6, Red Blood Count 4.76, Hemoglobin 13.8, Hematocrit 42, Mean Corpuscular Volume 89, Mean Corpuscular Hemoglobin 29, Mean Corpuscular Hemoglobin Concent 33, Red Cell Distribution Width 13.7, Platelet Count 297, Mean Platelet Volume 9.1, Immature Granulocyte % (Auto) 1, Neutrophils (%) (Auto) 72, Lymphocytes (%) (Auto) 15, Monocytes (%) (Auto) 10, Eosinophils (%) (Auto) 2, Basophils (%) (Auto) 1, Neutrophils # (Auto) 6.1, Lymphocytes # (Auto) 1.3, Monocytes # (Auto) 0.9, Eosinophils # (Auto) 0.2, Basophils # (Auto) 0.0, Immature Granulocyte # (Auto) 0.1, Prothrombin Time 13.0, INR Comment 1.0, Activated Partial Thromboplast Time 29, Sodium Level 137, Potassium Level 3.8, Chloride Level 104, Carbon Dioxide Level 24, Anion Gap 9, Blood Urea Nitrogen 15, Creatinine 1.03, Estimat Glomerular Filtration Rate 54, BUN/Creatinine Ratio 15, Glucose Level 99, Calcium Level 9.9, Corrected Calcium 9.7, Magnesium Level 2.0, Total Bilirubin 0.6, Aspartate Amino Transf (AST/SGOT) 15, Alanine Aminotransferase (ALT/SGPT) < 6, Alkaline Phosphatase 60, Myoglobin 42.7, Troponin I < 0.028, B-Type Natriuretic Peptide 35.2, Total Protein 7.1, Albumin 4.2, Lipase 34, Thyroid Stimulating Hormone (TSH) 1.36 04/18/23 14:47: Influenza Type A (RT-PCR) Not Detected, Influenza Type B (RT-PCR) Not Detected, SARS-CoV-2 RNA (RT-PCR) Not Detected 04/18/23 14:52: Urine Color YELLOW, Urine Clarity CLEAR, Urine pH 7.0, Urine Specific [place] 1.015L, Urine Protein NEGATIVE, Urine Glucose (UA) NEGATIVE, Urine Ketones NEGATIVE, Urine Nitrite NEGATIVE, Urine Bilirubin NEGATIVE, Urine Urobilinogen 0.2, Urine Leukocyte Esterase NEGATIVE, Urine RBC (Auto) NEGATIVE, Urine RBC NONE, Urine WBC RARE, Urine Squamous Epithelial Cells NONE, Urine Crystals NONE, Urine Bacteria NEGATIVE, Urine Casts NONE, Urine Mucus NEGATIVE, Urine Culture Indicated NO 04/19/23 05:44: White Blood Count 5.3, Red Blood Count 4.15, Hemoglobin 12.0, Hematocrit 38, Mean Corpuscular Volume 91, Mean Corpuscular Hemoglobin 29, Mean Corpuscular Hemoglobin Concent 32, Red Cell Distribution Width 13.9, Platelet Count 240, Mean Platelet Volume 9.3, Immature Granulocyte % (Auto) 1, Neutrophils (%) (Auto) 65, Lymphocytes (%) (Auto) 20, Monocytes (%) (Auto) 10, Eosinophils (%) (Auto) 4, Basophils (%) (Auto) 1, Neutrophils # (Auto) 3.5, Lymphocytes # (Auto) 1.1, Monocytes # (Auto) 0.5, Eosinophils # (Auto) 0.2, Basophils # (Auto) 0.0, Immature Granulocyte # (Auto) 0.0, Sodium Level 140, Potassium Level 4.1, Chloride Level 110H, Carbon Dioxide Level 25, Anion Gap 5, Blood Urea Nitrogen 15, Creatinine 0.88, Estimat Glomerular Filtration Rate 65, BUN/Creatinine Ratio 17, Glucose Level 87, Calcium Level 8.6, Corrected Calcium 9.0, Total Bilirubin 0.4, Aspartate Amino Transf (AST/SGOT) 14, Alanine Aminotransferase (ALT/SGPT) 7, Alkaline Phosphatase 48, Total Protein 5.7L, Albumin 3.5, Triglycerides Level 75, Cholesterol Level 112, LDL Cholesterol Direct 40, VLDL Cholesterol 15, HDL Cholesterol 51 Pending Labs Laboratory Tests 04/18/23 13:55: White Blood Count 8.6, Red Blood Count 4.76, Hemoglobin 13.8, Hematocrit 42, Mean Corpuscular Volume 89, Mean Corpuscular Hemoglobin 29, Mean Corpuscular Hemoglobin Concent 33, Red Cell Distribution Width 13.7, Platelet Count 297, Mean Platelet Volume 9.1, Immature Granulocyte % (Auto) 1, Neutrophils (%) (Auto) 72, Lymphocytes (%) (Auto) 15, Monocytes (%) (Auto) 10, Eosinophils (%) (Auto) 2, Basophils (%) (Auto) 1, Neutrophils # (Auto) 6.1, Lymphocytes # (Auto) 1.3, Monocytes # (Auto) 0.9, Eosinophils # (Auto) 0.2, Basophils # (Auto) 0.0, Immature Granulocyte # (Auto) 0.1, Prothrombin Time 13.0, INR Comment 1.0, Activated Partial Thromboplast Time 29, Sodium Level 137, Potassium Level 3.8, Chloride Level 104, Carbon Dioxide Level 24, Anion Gap 9, Blood Urea Nitrogen 15, Creatinine 1.03, Estimat Glomerular Filtration Rate 54, BUN/Creatinine Ratio 15, Glucose Level 99, Calcium Level 9.9, Corrected Calcium 9.7, Magnesium Level 2.0, Total Bilirubin 0.6, Aspartate Amino Transf (AST/SGOT) 15, Alanine Aminotransferase (ALT/SGPT) < 6, Alkaline Phosphatase 60, Myoglobin 42.7, Troponin I < 0.028, B-Type Natriuretic Peptide 35.2, Total Protein 7.1, Albumin 4.2, Lipase 34, Thyroid Stimulating Hormone (TSH) 1.36 04/18/23 14:47: Influenza Type A (RT-PCR) Not Detected, Influenza Type B (RT-PCR) Not Detected, SARS-CoV-2 RNA (RT-PCR) Not Detected 04/18/23 14:52: Urine Color YELLOW, Urine Clarity CLEAR, Urine pH 7.0, Urine Specific [place] 1.015, Urine Protein NEGATIVE, Urine Glucose (UA) NEGATIVE, Urine Ketones NEGATIVE, Urine Nitrite NEGATIVE, Urine Bilirubin NEGATIVE, Urine Urobilinogen 0.2, Urine Leukocyte Esterase NEGATIVE, Urine RBC (Auto) NEGATIVE, Urine RBC NONE, Urine WBC RARE, Urine Squamous Epithelial Cells NONE, Urine Crystals NONE, Urine Bacteria NEGATIVE, Urine Casts NONE, Urine Mucus NEGATIVE, Urine Culture Indicated NO 04/19/23 05:44: White Blood Count 5.3, Red Blood Count 4.15, Hemoglobin 12.0, Hematocrit 38, Mean Corpuscular Volume 91, Mean Corpuscular Hemoglobin 29, Mean Corpuscular Hemoglobin Concent 32, Red Cell Distribution Width 13.9, Platelet Count 240, Mean Platelet Volume 9.3, Immature Granulocyte % (Auto) 1, Neutrophils (%) (Auto) 65, Lymphocytes (%) (Auto) 20, Monocytes (%) (Auto) 10, Eosinophils (%) (Auto) 4, Basophils (%) (Auto) 1, Neutrophils # (Auto) 3.5, Lymphocytes # (Auto) 1.1, Monocytes # (Auto) 0.5, Eosinophils # (Auto) 0.2, Basophils # (Auto) 0.0, Immature Granulocyte # (Auto) 0.0, Sodium Level 140, Potassium Level 4.1, Chloride Level 110, Carbon Dioxide Level 25, Anion Gap 5, Blood Urea Nitrogen 15, Creatinine 0.88, Estimat Glomerular Filtration Rate 65, BUN/Creatinine Ratio 17, Glucose Level 87, Calcium Level 8.6, Corrected Calcium 9.0, Total Bilirubin 0.4, Aspartate Amino Transf (AST/SGOT) 14, Alanine Aminotransferase (ALT/SGPT) 7, Alkaline Phosphatase 48, Total Protein 5.7, Albumin 3.5, Triglycerides Level 75, Cholesterol Level 112, LDL Cholesterol Direct 40, VLDL Cholesterol 15, HDL Cholesterol 51 Discharge Home Medications: Active Scripts Active Hydrocodone-Acetamin 5-325 mg (Hydrocodone/Acetaminophen) 5 Mg-325 Mg Tablet 1 Ea PO Q4H PRN Reported Vitamin D3 (Cholecalciferol (Vitamin D3)) 125 Mcg (5000 Unit) Capsule 250 Mcg PO DAILY Cetirizine HCl 10 Mg Tablet 10 Mg PO HS Flonase Allergy Relief (Fluticasone Propionate) 50 Mcg/Actuation [place].susp 1-2 [place] NSEACH DAILY Tylenol Arthritis (Acetaminophen) 650 Mg Tablet.er 650-1,300 Mg PO Q8H PRN Magnesium 250 Mg Tablet 250 Mg PO HS Hair, Skin & Nails (Multivitamin with Minerals) 1 Each Tablet 1 Each PO DAILY Women's 50 Plus Multivit Tab (Mv-Mn/Folic Acid/Calcium/Vit K) 400 Mcg-500 Mg Calcium-20 Mcg Tablet 1 Each PO DAILY Rosuvastatin Calcium 20 Mg Tablet 20 Mg PO DAILY Paroxetine HCl 40 Mg Tablet 20 Mg PO BID TAKES OF A 40MG TAB Losartan Potassium 50 Mg Tablet 25 Mg PO BID TAKES OF A 50MG Pantoprazole Sodium 20 Mg Tablet.dr 20 Mg PO DAILY Ropinirole HCl 0.25 Mg Tablet 0.25 Mg PO ACHS Carbidopa-Levodopa 25-100 Tab (Carbidopa/Levodopa) 25 Mg-100 Mg Tablet 1 Ea PO 0700,1000,1300,1600,1900 Instructions to patient/family Please see electronic discharge instructions given to patient. MADELYN DAVIS DO Apr 19, 2023 12:37
== END 2023-04-19 13:23 | disposition home or self-care (01) ==
LOC: EDUNIT# 13:47 → ER 13:48 → UNDOADMOB 15:39 → CSD 15:39 → UNDODISOB 04-19 13:23
PROVIDERS: ADMIT Internal Medicine; ATTEND Internal Medicine
DX: R00.2 Palpitations (principal); G20.A1 Parkinson's disease without dyskinesia, without mention of fluctuations; R53.1 Weakness; R53.81 Other malaise; M25.552 Pain in left hip; M54.9 Dorsalgia, unspecified; G24.9 Dystonia, unspecified; I10 Essential (primary) hypertension; E78.5 Hyperlipidemia, unspecified; I48.91 Unspecified atrial fibrillation; F60.9 Personality disorder, unspecified; Z98.890 Other specified postprocedural states
CPT/HCPCS: 71045; 80053 ×2; 80061; 81000; 83690; 83735; 83874; 83880; 84443; 84484; 85025 ×2; 85610; 85730; 87636; 93005; 93041; 94760; 96361; 96372; 96374; 96375; 96376 ×2; 97162; 97166; 97535; 99284; G0378; 36415

== ENCOUNTER → 2023-04-19 | Outpatient (CLI) | payer MEDICARE ==
[~2023-04-19] MED LIST changes: +ACET-2650 PO; +CARB1TAB32 PO; +CETI10TA17 PO; +CHOL-6 PO; +CHOL500050 PO; +FLUT9.9S NS; +FLUT9.9S NSEACH; +LOSA50TA63 PO; +MAGN250T13 PO; +MAGN250T31 PO; +MULT-1054 PO; +MV-M1TAB57 PO; +PANT20TA18 PO; +PARO40TA3 PO; +ROPI0.2533 PO; +ROSU20TA73 PO
--- NOTE | 2023-04-19 14:38 | History & Physicial-Cardiolgy ---
HPI-Cardiology Cardiology Consultation: Date of Consultation 04/19/23 Date of Admission 04/18/2023 Attending Physician Winnie Mcdonough MD Admitting Physician Admitting Physician: Attending Physician: Racheal Davis DO Consulting Physician JESUS RIVER MD HPI: Time Seen by a Provider: 10:40 Chief Complaint: Admitted with shortness of breath and weakness. Patient presented complaining of shortness of breath weakness, cramps tremor, dizziness, lightheadedness, left hip and back pain. She was recently admitted with similar complaints and had a negative cardiac work-up. Recently saw neurologist decreased the dose of Sinemet. Patient also underwent tramadol injection because of hip pain and she complains of multiple side effects from that injection. Review of Systems-Cardiology Review of Systems Constitutional: malaise, tiredness Eyes: no symptoms reported Ears/Nose/Throat: no symptoms reported Respiratory: shortness of breath Cardiovascular: palpitations Gastrointestinal: no symptoms reported Genitourinary: no symptoms reported : No Musculoskeletal: back pain, joint pain Skin: no symptoms reported Psychiatric/Neurological: no symptoms reported Hematologic: no symptoms reported [id number] Hx Immunizations Up To Date Date of Pneumonia Vaccine: May 13, 2010 Date of Influenza Vaccine: Feb 25, 2016 Past Medical History PMH As described under Assessment. Allergies and Home Medications Allergies Coded Allergies: No Known Drug Allergies (Unverified , 03/10/16) Patient Home Medication List Home Medication List Reviewed: Yes Acetaminophen (Tylenol Arthritis) 650 Mg Tablet.er, 650-1,300 MG PO Q8H PRN for PAIN-MILD (1-4), (Reported) Entered as Reported by: ARIELLE DUARTE on 04/19/23 1155 Carbidopa/Levodopa (Carbidopa-Levodopa 25-100 Tab) 25 Mg-100 Mg Tablet, 1 EA PO 0700,1000,1300,1600,1900, (Reported) Entered as Reported by: THEODORE PONCE on 04/18/23 1604 Cetirizine HCl (Cetirizine HCl) 10 Mg Tablet, 10 MG PO HS, (Reported) Entered as Reported by: ARIELLE DUARTE on 04/19/23 1155 Cholecalciferol (Vitamin D3) (Vitamin D3) 125 Mcg (5000 Unit) Capsule, 250 MCG PO DAILY, (Reported) Entered as Reported by: ARIELLE DUARTE on 04/19/23 1202 Fluticasone Propionate (Flonase Allergy Relief) 50 Mcg/[place].susp, 1-2 SPRAY NSEACH DAILY, (Reported) Entered as Reported by: ARIELLE DUARTE on 04/19/23 1155 Hydrocodone/Acetaminophen (Hydrocodone-Acetamin 5-325 mg) 5 Mg-325 Mg Tablet, 1 EA PO Q4H PRN for PAIN-MODERATE (5-7) Prescribed by: RACHEAL DAVIS on 04/19/23 1236 Losartan Potassium (Losartan Potassium) 50 Mg Tablet, 25 MG PO BID, (Reported) Entered as Reported by: THEODORE PONCE on 04/18/23 160 Magnesium (Magnesium) 250 Mg Tablet, 250 MG PO HS, (Reported) Entered as Reported by: ARIELLE DUARTE on 04/19/23 1155 Multivitamin with Minerals (Hair, Skin & Nails) 1 Each Tablet, 1 EACH PO DAILY, (Reported) Entered as Reported by: ARIELLE DUARTE on 04/19/23 1155 Mv-Mn/Folic Acid/Calcium/Vit K (Women's 50 Plus Multivit Tab) 400 Mcg-500 Mg Calcium-20 Mcg Tablet, 1 EACH PO DAILY, (Reported) Entered as Reported by: ARIELLE DUARTE on 04/19/23 1155 Pantoprazole Sodium (Pantoprazole Sodium) 20 Mg Tablet.dr, 20 MG PO DAILY, (Reported) Entered as Reported by: THEODORE PONCE on 04/18/23 160 Paroxetine HCl (Paroxetine HCl) 40 Mg Tablet, 20 MG PO BID, (Reported) Entered as Reported by: THEODORE PONCE on 04/18/23 160 Ropinirole HCl (Ropinirole HCl) 0.25 Mg Tablet, 0.25 MG PO ACHS, (Reported) Entered as Reported by: THEODORE PONCE on 04/18/23 160 Rosuvastatin Calcium (Rosuvastatin Calcium) 20 Mg Tablet, 20 MG PO DAILY, (Reported) Entered as Reported by: THEODORE PONCE on 04/18/23 160 Discontinued Medications Acetaminophen (Tylenol Arthritis) 650 Mg Tablet.er, 650 MG PO Q6H PRN for PAIN, (Reported) Discontinued Reason: No Longer Taking Entered as Reported by: THEODORE PONCE on 04/18/23 1604 Cetirizine HCl (Zyrtec) 10 Mg Capsule, 10 MG PO DAILY, (Reported) Discontinued Reason: No Longer Taking Entered as Reported by: THEODORE PONCE on 04/18/23 1604 Cetirizine Hcl (Zyrtec) 10 Mg Capsule, 10 MG PO, (Reported) Discontinued Reason: No Longer Taking Entered as Reported by: RENNY BROCK on 04/13/12 0950 Cholecalciferol (Vitamin D3) (Vitamin D3) 250 Mcg (28408 Unit) Capsule, 250 MCG PO DAILY, (Reported) Discontinued Reason: No Longer Taking Entered as Reported by: THEODORE PONCE on 04/18/23 1604 Citalopram Hydrobromide (Citalopram HBr) 20 Mg Tablet, 20 MG PO DAILY, (Reported) Discontinued Reason: No Longer Taking Entered as Reported by: FAYE MARINO on 03/12/16 0918 Fluticasone Propionate (Flonase Allergy Relief) 50 Mcg/[place].susp, 1 SPRAY NS DAILY, (Reported) Discontinued Reason: No Longer Taking Entered as Reported by: THEODORE PONCE on 04/18/23 160 Hydrocodone/Acetaminophen (Hydrocodone-Acetamin 5-325 mg) 1 Each Tablet, 0.5-1 EACH PO Q4-6 HOURS PRN for PAIN Discontinued Reason: No Longer Taking Prescribed by: LAY JAVIER on 03/27/212018 Hyoscyamine Sulfate (Levsin-Sl) 0.125 Mg Tab.subl, 0.25 MG SL Q4H Discontinued Reason: No Longer Taking Prescribed by: LAY JAVIER on 03/27/212018 Magnesium Oxide (Magnesium) 250 Mg Tablet, 250 MG PO DAILY, (Reported) Discontinued Reason: No Longer Taking Entered as Reported by: THEODORE PONCE on 04/18/23 160 Omeprazole (Prilosec 20 Mg) 20 Mg Capsule.dr, 20 MG PO DAILY, (Reported) Discontinued Reason: No Longer Taking Entered as Reported by: RENNY BROCK on 04/13/12 0946 Ondansetron (Ondansetron Odt) 4 Mg Tab.rapdis, 4 MG PO Q4H Discontinued Reason: No Longer Taking Prescribed by: LAY JAVIER on 03/27/212019 Vitamin B Complex & Vit C No.4 (Super B Complex) 150 Mg Tablet, 150 MG PO DAILY, (Reported) Discontinued Reason: No Longer Taking Entered as Reported by: FAYE MARINO on 03/12/16 0918 Physical Exam-Cardiology Physical Exam Vital Signs/I&O Capillary Refill : Constitutional: appears stated age, AAO x 3 HEENT: PERRL Neck: non-tender Respiratory: accessory muscle use Cardiovascular: regular rate-rhythm, S1 and S2 Gastrointestinal: soft, round Rectal: deferred Extremities: normal range of motion, non-tender Neurologic/Psychiatric: no motor/sensory deficits, alert, oriented x 3 Skin: normal color Lymphatic: no adenopathy Data Review Radiology Date of Exam:04/18/23 CHEST 1 VIEW, AP/PA ONLY INDICATION: Shortness of air and fatigue. TIME OF EXAM: 1:54 p.m. COMPARISON: Correlation is made with prior chest 04/11/2023. FINDINGS: The heart size is normal. The pulmonary vascularity is unremarkable. The lungs are clear. No infiltrate, effusion or pneumothorax is detected. IMPRESSION: No acute cardiopulmonary process is detected. A/P-Cardiology Assessment/Admission Diagnosis Shortness of breath Admission Status: Observation Plan Okay to discharge patient home on present medications. We will continue work-up as outpatient JESUS RIVER MD Apr 19, 2023 14:38
== END ==
LOC: CARD 13:32
PROVIDERS: ATTEND Internal Medicine
DX: R00.2 Palpitations (principal)
CPT/HCPCS: 93246